=== PATIENT | male | born 1950 | race Caucasian/White ===

== ENCOUNTER 2018-08-15 07:21 | Inpatient (IN) ==
[~2018-08-15 07:21] MED LIST: Aminoglycoside Consult 1 EACH MC ONE
[2018-08-15] MEDS ORDERED: 0.9 % Sodium Chloride 1,000 ML IVC ONE (07:28)
--- NOTE | 2018-08-15 07:29 | Emergency Department Note ---
Disposition Clinical Impression: Hyperkalemia, End stage renal disease Complications, dialysis, catheter, mechanical Qualifiers: Encounter type: initial encounter Qualified Code(s): T82.49XA - Other complication of vascular dialysis catheter, initial encounter Sepsis Qualifiers: Sepsis type: sepsis due to unspecified organism Qualified Code(s): A41.9 - Sepsis, unspecified organism Altered mental status Qualifiers: Altered mental status type: unspecified Qualified Code(s): R41.82 - Altered mental status, unspecified CHF exacerbation Qualifiers: Heart failure type: unspecified Qualified Code(s): I50.9 - Heart failure, unspecified Diabetes Qualifiers: Diabetes mellitus type: type 2 Diabetes mellitus intermediate insulin use: unspecified long term care phlebotomist insulin use status Diabetes mellitus complication status: with unspecified complications Qualified Code(s): E11.8 - Type 2 diabetes mellitus with unspecified complications Disposition: Admitted As Inpatient Condition: Critical Time of Disposition: 09:51 Altered Mental Status HPI - General Chief Complaint: ED Altered Mental Status Time Seen by Provider: 08/15/18 07:24 Source: EMS Mode of arrival: EMS Limitations: altered mental status Nursing Notes Reviewed: Yes Vital Signs Reviewed: Yes - History of Present Illness HPI Narrative: 68-year-old male past medical history of COPD presenting from extended care facility due to concerns of altered mental status and fever. 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 Patient was noted to be hypotensive in route and EMS stated he was having significant bleeding from the femoral wound. Upon presentation pressures being applied there is one soaked ABd pad but no signs of active bleed. There is approximately one half to three-quarter centimeter round wound on the anterior right thigh. Patient appears to have altered mental status and is alert to person only, he is able to answer simple yes or no questions states that he does not have chest pain is short of breath. MD complaint: altered mental status Onset (ago): day(s) Timing confirmed by: other (Information given by EMS.) Consistency of Symptoms: unknown Context: COPD Associated symptoms: Reports: shortness of breath. Denies: chest pain, nausea/vomiting Treatments prior to arrival: IV fluid, oxygen - Related Data Home Medications Medication Instructions Recorded Confirmed Allopurinol [Zyloprim 100 MG] 100 mg PO BID 05/25/18 05/25/18 Aspirin [Lo-Dose Aspirin EC] 81 mg PO DAILY 05/25/18 05/25/18 Furosemide [Lasix] 40 mg PO BID 05/25/18 05/25/18 Simvastatin [Zocor] 40 mg PO HS 05/25/18 05/25/18 Admelog Solostar 2 - 10 units SQ TIDWM MDD sliding 08/15/18 08/15/18 scale Amiodarone [Cordarone] 200 mg PO DAILY 08/15/18 08/15/18 Ascorbate Calcium [Vitamin C] 08/15/18 Ascorbic Acid [Vitamin C] 500 mg PO DAILY 08/15/18 08/15/18 Ergocalciferol (VITAMIN D2) 50,000 unit PO DAILY 08/15/18 08/15/18 [Vitamin D2] Isosorbide DInitrate [Isosorbide 20 mg PO TID 08/15/18 08/15/18 Dinitrate] Lantus Solostar 20 units SQ QAM 08/15/18 08/15/18 Metoprolol Succinate 25 mg PO DAILY 08/15/18 OxyCODONE/APAP 10/325 [Percocet 2 each PO Q6-12H PRN 08/15/18 08/15/18 10/325 MG] Pantoprazole Sodium 40 mg PO DAILY 08/15/18 08/15/18 Triamcinolone 1 appl TP BID PRN 08/15/18 08/15/18 Warfarin [Coumadin] 1.5 mg PO MO 08/15/18 08/15/18 Warfarin [Coumadin] 2 mg PO [id number] 08/15/18 08/15/18 Allergies Allergy/AdvReac Type Severity Reaction Status Date / Time latex AdvReac Rash Verified 05/25/18 20:54 Review of Systems: Medical review of systems able to be obtained due to patient mental status. Patient denies chest pain, abdominal pain nausea or vomiting Patient admits to shortness of breath. All systems ED: reviewed and negative except as stated. Review of Systems: As Per HPI Limitations: ROS unobtainable due to patients medical condition Past Medical History - Past Medical History Medical history: Reports: arthritis, atrial fibrillation, COPD, diabetes, dialysis Surgical history: Reports: herniorrhaphy, knee replacement, orthopedic, other, tonsillectomy, vascular surgery, vasectomy Psychiatric history: Reports: no psych history - Social History Smoking Status: Current every day smoker Smokeless Tobacco Status: No Alcohol use: Reports: none Drug use: Reports: none Physical Exam - General Limitations: no limitations General appearance: alert, in distress - Head Head exam: atraumatic, normocephalic, normal inspection - Eye Eye exam: Present: normal appearance, PERRL, EOMI. Absent: scleral icterus, conjunctival injection - Neck Neck exam: Present: normal inspection, trachea midline - Chest Chest inspection: Present: normal inspection, symmetric chest wall rise - Respiratory Respiratory exam: Present: normal lung sounds bilaterally, wheezes. Absent: respiratory distress, stridor, accessory muscle use, prolonged expiratory phase - Cardiovascular Cardiovascular exam: Present: regular rate, normal rhythm, normal heart sounds, +S1, +S2. Absent: systolic murmur, diastolic murmur, rubs, gallop, clicks, JVD, +S3, +S4 - Abdominal Exam Abdominal exam: Present: soft, Non-Tender, distention, normal bowel sounds. Absent: guarding, rebound, rigidity, organomegaly - Extremities Exam Extremities exam: Present: normal capillary refill, other (Patient is 3+ pitting edema with swelling and erythema noted to bilateral lower extremities. The left lower extremity appears ashen in color. Both lower extremities have less than 3 second capillary refill. They are soaked in urine with a foul odor. Concern for trench foot versus gangrene.) - Skin Skin exam: Present: warm, dry, erythema. Absent: intact, cyanosis, diaphoresis, pallor, mottled Course Course Narrative: ED sepsis workup We will initiate 2 large-bore IVs at this time with 2 L fluid bolus Vancomycin and Zosyn for empiric treatment of sepsis. - Reevaluation(s) Reevaluation #1: Patient's blood pressure has improved with 1 L of fluids Second liter in progress We will hold third liter fluid bolus due to concerns of potential for CHF exacerbation. Vital Signs Temperature 97.9 F 08/15/18 07:22 Pulse Rate 131 08/15/18 07:22 Respiratory Rate 22 08/15/18 07:22 Blood Pressure 104/74 08/15/18 07:22 O2 Sat by Pulse Oximetry 87 08/15/18 07:22 Temperature 97.9 F 08/15/18 07:22 Pulse Rate 131 08/15/18 10:04 Respiratory Rate 21 08/15/18 10:04 Blood Pressure 122/77 08/15/18 10:04 O2 Sat by Pulse Oximetry 100 08/15/18 10:04 Oxygen Delivery Oxygen Delivery Nasal Cannula Altered Mental Status - MDM Narrative Medical decision making narrative: Patient noted to hospitalist medicine service for further evaluation of altered mental status in the setting of end-stage renal disease, hyperkalemia, elevated troponin, and CHF exacerbation. - Lab Data Lab results reviewed: Yes I reviewed the patient's lab results. Result diagrams: 08/15/18 08:13 08/15/18 08:13 Lab Results 08/15/18 08/15/18 08/15/18 Range/Units 07:53 08:13 08:13 WBC 8.6 (4.3-11.1) K/mcL RBC 3.00 L (4.19-5.50) M/mcL Hgb 8.2 L (12.9-16.9) g/dL Hct 26.8 L (37.5-50.1) % MCV 89.3 (83.0-100.0) fL MCH 27.3 L (28.0-33.3) pg MCHC 30.6 L (31.6-35.5) g/dL RDW 19.4 H (11.5-14.5) % Plt Count 213 (140-400) K/mcL MPV 10.1 (9.4-12.4) fL Immature Gran % 0.9 (0-4) % Seg Neutrophils % 88.9 % Lymphocytes % 3.9 % Monocytes % 6.1 % Eosinophils % 0.1 % Basophils % 0.1 % Neutrophils # 7.7 (1.6-8.9) K/mcL Lymphocytes # 0.3 L (0.6-4.6) K/mcL Monocytes # 0.5 (0.0-1.3) K/mcL Eosinophils # 0.0 (0.0-0.6) K/mcL Basophils # 0.0 (0.0-0.2) K/mcL Nucleated RBCs/100 WBC 0.3 H (0) /100 WBC PT 24.4 H (9.4-12.1) Seconds INR 2.2 Sodium (136-145) mEq/L Potassium (3.5-5.1) mEq/L Chloride (98-107) mEq/L Carbon Dioxide (23-29) mEq/L BUN (8-23) mg/dL Creatinine (0.70-1.30) mg/dL Est GFR ( Amer) (> 60) Est GFR (Non-Af Amer) (> 60) BUN/Creatinine Ratio (6-26) Glucose (70-105) mg/dL Calculated Osmolality (280-300) Lactic Acid (0.5-2.2) mmol/L Calcium (8.6-10.3) mg/dL Total Bilirubin (0.3-1.0) mg/dL AST (13-39) Units/L ALT (7-52) Units/L Alkaline Phosphatase (34-104) Units/L Troponin I (< 0.04) ng/mL B-Natriuretic Peptide (Less than 100) pg/mL Serum Total Protein (6.4-8.9) g/dL Albumin (3.5-5.7) g/dL Globulin (2.4-3.5) g/dL Albumin/Globulin Ratio (1.1-2.2) Ur Specimen Adequacy See below A Urine Color [place] A (Yellow) Urine Clarity Turbid A (Clear) Urine pH 5.0 (5.0-8.0) pH Units Ur Specific [place] 1.025 (1.010-1.025) Urine Protein 100 H (Neg-Trace) mg/dL Urine Glucose (UA) Normal (Normal) mg/dL Urine Ketones Trace H (Negative) mg/dL Urine Blood Large H (Negative) Urine Nitrite Negative (Negative) Urine Bilirubin Moderate H (Negative) Urine Urobilinogen Normal (Normal) mg/dL Ur Leukocyte Esterase Moderate H (Negative) Urine Microscopic RBC TNTC H (0-3) per hpf Urine Microscopic WBC 0-3 (0-3) per hpf Ur Squamous Epith Cells Few (None-Few) per lpf Urine Bacteria Few (None-Few) per hpf Blood Type Antibody Screen Crossmatch 08/15/18 08/15/18 08/15/18 Range/Units 08:13 08:13 08:13 WBC (4.3-11.1) K/mcL RBC (4.19-5.50) M/mcL Hgb (12.9-16.9) g/dL Hct (37.5-50.1) % MCV (83.0-100.0) fL MCH (28.0-33.3) pg MCHC (31.6-35.5) g/dL RDW (11.5-14.5) % Plt Count (140-400) K/mcL MPV (9.4-12.4) fL Immature Gran % (0-4) % Seg Neutrophils % % Lymphocytes % % Monocytes % % Eosinophils % % Basophils % % Neutrophils # (1.6-8.9) K/mcL Lymphocytes # (0.6-4.6) K/mcL Monocytes # (0.0-1.3) K/mcL Eosinophils # (0.0-0.6) K/mcL Basophils # (0.0-0.2) K/mcL Nucleated RBCs/100 WBC (0) /100 WBC PT (9.4-12.1) Seconds INR Sodium 133 L (136-145) mEq/L Potassium 5.9 H (3.5-5.1) mEq/L Chloride 95 L (98-107) mEq/L Carbon Dioxide 18 L (23-29) mEq/L BUN 111 H (8-23) mg/dL Creatinine 7.48 H (0.70-1.30) mg/dL Est GFR ( Amer) 9 L (> 60) Est GFR (Non-Af Amer) 7 L (> 60) BUN/Creatinine Ratio 15 (6-26) Glucose 201 H (70-105) mg/dL Calculated Osmolality 317 H (280-300) Lactic Acid 2.6 H (0.5-2.2) mmol/L Calcium 8.7 (8.6-10.3) mg/dL Total Bilirubin 0.7 (0.3-1.0) mg/dL AST 43 H (13-39) Units/L ALT 21 (7-52) Units/L Alkaline Phosphatase 103 (34-104) Units/L Troponin I 0.08 H* (< 0.04) ng/mL B-Natriuretic Peptide (Less than 100) pg/mL Serum Total Protein 7.5 (6.4-8.9) g/dL Albumin 3.4 L (3.5-5.7) g/dL Globulin 4.1 H (2.4-3.5) g/dL Albumin/Globulin Ratio 0.8 L (1.1-2.2) Ur Specimen Adequacy Urine Color (Yellow) Urine Clarity (Clear) Urine pH (5.0-8.0) pH Units Ur Specific [place] (1.010-1.025) Urine Protein (Neg-Trace) mg/dL Urine Glucose (UA) (Normal) mg/dL Urine Ketones (Negative) mg/dL Urine Blood (Negative) Urine Nitrite (Negative) Urine Bilirubin (Negative) Urine Urobilinogen (Normal) mg/dL Ur Leukocyte Esterase (Negative) Urine Microscopic RBC (0-3) per hpf Urine Microscopic WBC (0-3) per hpf Ur Squamous Epith Cells (None-Few) per lpf Urine Bacteria (None-Few) per hpf Blood Type O POSITIVE Antibody Screen NEGATIVE Crossmatch See Detail 08/15/18 Range/Units 08:13 WBC (4.3-11.1) K/mcL RBC (4.19-5.50) M/mcL Hgb (12.9-16.9) g/dL Hct (37.5-50.1) % MCV (83.0-100.0) fL MCH (28.0-33.3) pg MCHC (31.6-35.5) g/dL RDW (11.5-14.5) % Plt Count (140-400) K/mcL MPV (9.4-12.4) fL Immature Gran % (0-4) % Seg Neutrophils % % Lymphocytes % % Monocytes % % Eosinophils % % Basophils % % Neutrophils # (1.6-8.9) K/mcL Lymphocytes # (0.6-4.6) K/mcL Monocytes # (0.0-1.3) K/mcL Eosinophils # (0.0-0.6) K/mcL Basophils # (0.0-0.2) K/mcL Nucleated RBCs/100 WBC (0) /100 WBC PT (9.4-12.1) Seconds INR Sodium (136-145) mEq/L Potassium (3.5-5.1) mEq/L Chloride (98-107) mEq/L Carbon Dioxide (23-29) mEq/L BUN (8-23) mg/dL Creatinine (0.70-1.30) mg/dL Est GFR ( Amer) (> 60) Est GFR (Non-Af Amer) (> 60) BUN/Creatinine Ratio (6-26) Glucose (70-105) mg/dL Calculated Osmolality (280-300) Lactic Acid (0.5-2.2) mmol/L Calcium (8.6-10.3) mg/dL Total Bilirubin (0.3-1.0) mg/dL AST (13-39) Units/L ALT (7-52) Units/L Alkaline Phosphatase (34-104) Units/L Troponin I (< 0.04) ng/mL B-Natriuretic Peptide 735 H (Less than 100) pg/mL Serum Total Protein (6.4-8.9) g/dL Albumin (3.5-5.7) g/dL Globulin (2.4-3.5) g/dL Albumin/Globulin Ratio (1.1-2.2) Ur Specimen Adequacy Urine Color (Yellow) Urine Clarity (Clear) Urine pH (5.0-8.0) pH Units Ur Specific [place] (1.010-1.025) Urine Protein (Neg-Trace) mg/dL Urine Glucose (UA) (Normal) mg/dL Urine Ketones (Negative) mg/dL Urine Blood (Negative) Urine Nitrite (Negative) Urine Bilirubin (Negative) Urine Urobilinogen (Normal) mg/dL Ur Leukocyte Esterase (Negative) Urine Microscopic RBC (0-3) per hpf Urine Microscopic WBC (0-3) per hpf Ur Squamous Epith Cells (None-Few) per lpf Urine Bacteria (None-Few) per hpf Blood Type Antibody Screen Crossmatch - Radiology Data Radiology results reviewed: Yes I reviewed the patient's radiology results. Chest X-Ray 08/15/18 07:29 IMPRESSION: Cardiomegaly with pulmonary vascular prominence. No interstitial or alveolar edema seen. D/ / 08/15/2018 08:21:51 Farzad Russell MD / florin Interpreting Provider: Farzad Russell MD Head CT 08/15/18 09:32 IMPRESSION: No evidence of acute intracranial abnormality. D/ / 08/15/2018 10:01:54 Juan Carlos Cintron MD / florin Interpreting Provider: Juan Carlos Cintron MD - EKG Data EKG attestation: Yes I reviewed and interpreted this EKG. EKG results narrative: Patient EKG shows sinus tachycardia with right bundle branch block and a left anterior fascicular block, tolerated 132 bpm, QRS duration of 185 ms, QT/QTc interval 376/558 ms respectively. There are ST segment elevations noted in lead aVR, which appear to be isolated to that lead, there are ST segment depressions noted in anterior lateral leads the patient is not currently complaining of any chest pain, we will get a troponin at this time for further evaluation. This EKG shows significant changes from prior EKG which was performed on 06/01/2014. TPA Checklist - LKW: 3-4.5 hrs Add. Warnings/Precautions Patient/family understanding: The patient/family members have been counseled and understood the risk, benefit, and alternatives of treatment.
--- NOTE | 2018-08-15 07:32 | Emergency Department Note ---
Disposition Clinical Impression: Complications, dialysis, catheter, mechanical, Sepsis, Altered mental status, CHF exacerbation, Hyperkalemia, End stage renal disease, Diabetes Disposition: Admitted As Inpatient Condition: Critical General Adult HPI - General Chief complaint: ED Altered Mental Status Time Seen by Provider: 08/15/18 07:24 Source: patient, EMS Limitations: no limitations - History of Present Illness Pain Scale: 0 - Related Data Home Medications Medication Instructions Recorded Confirmed Allopurinol [Zyloprim 100 MG] 100 mg PO BID 05/25/18 08/15/18 Aspirin [Lo-Dose Aspirin EC] 81 mg PO DAILY 05/25/18 08/15/18 Furosemide [Lasix] 40 mg PO BID 05/25/18 08/15/18 Simvastatin [Zocor] 10 mg PO HS 05/25/18 08/15/18 Admelog Solostar 2 - 10 units SQ TIDWM MDD sliding 08/15/18 08/15/18 scale Amiodarone [Cordarone] 200 mg PO DAILY 08/15/18 08/15/18 Ascorbate Calcium [Vitamin C] 08/15/18 Ascorbic Acid [Vitamin C] 500 mg PO DAILY 08/15/18 08/15/18 Ergocalciferol (VITAMIN D2) 50,000 unit PO DAILY 08/15/18 08/15/18 [Vitamin D2] Isosorbide DInitrate [Isosorbide 20 mg PO TID 08/15/18 08/15/18 Dinitrate] Lantus Solostar 20 units SQ QAM 08/15/18 08/15/18 Metoprolol Succinate 25 mg PO DAILY 08/15/18 OxyCODONE/APAP 10/325 [Percocet 2 each PO Q6-12H PRN 08/15/18 08/15/18 10/325 MG] Pantoprazole Sodium 40 mg PO DAILY 08/15/18 08/15/18 Triamcinolone 1 appl TP BID PRN 08/15/18 08/15/18 Warfarin [Coumadin] 1.5 mg PO MO 08/15/18 08/15/18 Warfarin [Coumadin] 2 mg PO SUTUWETHFRSA 08/15/18 08/15/18 Allergies Allergy/AdvReac Type Severity Reaction Status Date / Time latex AdvReac Rash Verified 05/25/18 20:54 Past Medical History - Past Medical History Medical history: Reports: arthritis, atrial fibrillation, COPD, diabetes, dialysis Surgical history: Reports: herniorrhaphy, knee replacement, orthopedic, other, tonsillectomy, vascular surgery, vasectomy Psychiatric history: Reports: no psych history - Social History Smoking Status: Current every day smoker Smokeless Tobacco Status: No Alcohol use: Reports: none Drug use: Reports: none Physical Exam - General Limitations: no limitations General appearance: alert, in distress Course Vital Signs Temperature 97.9 F 08/15/18 07:22 Pulse Rate 131 08/15/18 07:22 Respiratory Rate 22 08/15/18 07:22 Blood Pressure 104/74 08/15/18 07:22 O2 Sat by Pulse Oximetry 87 08/15/18 07:22 Temperature 97.6 F 08/15/18 15:17 Pulse Rate 120 08/15/18 15:17 Respiratory Rate 28 08/15/18 15:17 Blood Pressure 95/65 08/15/18 15:17 O2 Sat by Pulse Oximetry 91 08/15/18 15:02 Oxygen Delivery Oxygen Delivery Nasal Cannula Medical Decision Making - Lab Data Result diagrams: 08/15/18 08:13 08/15/18 08:13 Lab Results 08/15/18 08/15/18 08/15/18 Range/Units 07:53 08:13 08:13 WBC 8.6 (4.3-11.1) K/mcL RBC 3.00 L (4.19-5.50) M/mcL Hgb 8.2 L (12.9-16.9) g/dL Hct 26.8 L (37.5-50.1) % MCV 89.3 (83.0-100.0) fL MCH 27.3 L (28.0-33.3) pg MCHC 30.6 L (31.6-35.5) g/dL RDW 19.4 H (11.5-14.5) % Plt Count 213 (140-400) K/mcL MPV 10.1 (9.4-12.4) fL Immature Gran % 0.9 (0-4) % Seg Neutrophils % 88.9 % Lymphocytes % 3.9 % Monocytes % 6.1 % Eosinophils % 0.1 % Basophils % 0.1 % Neutrophils # 7.7 (1.6-8.9) K/mcL Lymphocytes # 0.3 L (0.6-4.6) K/mcL Monocytes # 0.5 (0.0-1.3) K/mcL Eosinophils # 0.0 (0.0-0.6) K/mcL Basophils # 0.0 (0.0-0.2) K/mcL Nucleated RBCs/100 WBC 0.3 H (0) /100 WBC PT 24.4 H (9.4-12.1) Seconds INR 2.2 Sodium (136-145) mEq/L Potassium (3.5-5.1) mEq/L Chloride (98-107) mEq/L Carbon Dioxide (23-29) mEq/L BUN (8-23) mg/dL Creatinine (0.70-1.30) mg/dL Est GFR ( Amer) (> 60) Est GFR (Non-Af Amer) (> 60) BUN/Creatinine Ratio (6-26) Glucose (70-105) mg/dL Calculated Osmolality (280-300) Lactic Acid (0.5-2.2) mmol/L Calcium (8.6-10.3) mg/dL Total Bilirubin (0.3-1.0) mg/dL AST (13-39) Units/L ALT (7-52) Units/L Alkaline Phosphatase (34-104) Units/L Troponin I (< 0.04) ng/mL B-Natriuretic Peptide (Less than 100) pg/mL Serum Total Protein (6.4-8.9) g/dL Albumin (3.5-5.7) g/dL Globulin (2.4-3.5) g/dL Albumin/Globulin Ratio (1.1-2.2) Ur Specimen Adequacy See below A Urine Color [place] A (Yellow) Urine Clarity Turbid A (Clear) Urine pH 5.0 (5.0-8.0) pH Units Ur Specific [place] 1.025 (1.010-1.025) Urine Protein 100 H (Neg-Trace) mg/dL Urine Glucose (UA) Normal (Normal) mg/dL Urine Ketones Trace H (Negative) mg/dL Urine Blood Large H (Negative) Urine Nitrite Negative (Negative) Urine Bilirubin Moderate H (Negative) Urine Urobilinogen Normal (Normal) mg/dL Ur Leukocyte Esterase Moderate H (Negative) Urine Microscopic RBC TNTC H (0-3) per hpf Urine Microscopic WBC 0-3 (0-3) per hpf Ur Squamous Epith Cells Few (None-Few) per lpf Urine Bacteria Few (None-Few) per hpf Blood Type Antibody Screen Crossmatch 08/15/18 08/15/18 08/15/18 Range/Units 08:13 08:13 08:13 WBC (4.3-11.1) K/mcL RBC (4.19-5.50) M/mcL Hgb (12.9-16.9) g/dL Hct (37.5-50.1) % MCV (83.0-100.0) fL MCH (28.0-33.3) pg MCHC (31.6-35.5) g/dL RDW (11.5-14.5) % Plt Count (140-400) K/mcL MPV (9.4-12.4) fL Immature Gran % (0-4) % Seg Neutrophils % % Lymphocytes % % Monocytes % % Eosinophils % % Basophils % % Neutrophils # (1.6-8.9) K/mcL Lymphocytes # (0.6-4.6) K/mcL Monocytes # (0.0-1.3) K/mcL Eosinophils # (0.0-0.6) K/mcL Basophils # (0.0-0.2) K/mcL Nucleated RBCs/100 WBC (0) /100 WBC PT (9.4-12.1) Seconds INR Sodium 133 L (136-145) mEq/L Potassium 5.9 H (3.5-5.1) mEq/L Chloride 95 L (98-107) mEq/L Carbon Dioxide 18 L (23-29) mEq/L BUN 111 H (8-23) mg/dL Creatinine 7.48 H (0.70-1.30) mg/dL Est GFR ( Amer) 9 L (> 60) Est GFR (Non-Af Amer) 7 L (> 60) BUN/Creatinine Ratio 15 (6-26) Glucose 201 H (70-105) mg/dL Calculated Osmolality 317 H (280-300) Lactic Acid 2.6 H (0.5-2.2) mmol/L Calcium 8.7 (8.6-10.3) mg/dL Total Bilirubin 0.7 (0.3-1.0) mg/dL AST 43 H (13-39) Units/L ALT 21 (7-52) Units/L Alkaline Phosphatase 103 (34-104) Units/L Troponin I 0.08 H* (< 0.04) ng/mL B-Natriuretic Peptide (Less than 100) pg/mL Serum Total Protein 7.5 (6.4-8.9) g/dL Albumin 3.4 L (3.5-5.7) g/dL Globulin 4.1 H (2.4-3.5) g/dL Albumin/Globulin Ratio 0.8 L (1.1-2.2) Ur Specimen Adequacy Urine Color (Yellow) Urine Clarity (Clear) Urine pH (5.0-8.0) pH Units Ur Specific [place] (1.010-1.025) Urine Protein (Neg-Trace) mg/dL Urine Glucose (UA) (Normal) mg/dL Urine Ketones (Negative) mg/dL Urine Blood (Negative) Urine Nitrite (Negative) Urine Bilirubin (Negative) Urine Urobilinogen (Normal) mg/dL Ur Leukocyte Esterase (Negative) Urine Microscopic RBC (0-3) per hpf Urine Microscopic WBC (0-3) per hpf Ur Squamous Epith Cells (None-Few) per lpf Urine Bacteria (None-Few) per hpf Blood Type O POSITIVE Antibody Screen NEGATIVE Crossmatch See Detail 08/15/18 Range/Units 08:13 WBC (4.3-11.1) K/mcL RBC (4.19-5.50) M/mcL Hgb (12.9-16.9) g/dL Hct (37.5-50.1) % MCV (83.0-100.0) fL MCH (28.0-33.3) pg MCHC (31.6-35.5) g/dL RDW (11.5-14.5) % Plt Count (140-400) K/mcL MPV (9.4-12.4) fL Immature Gran % (0-4) % Seg Neutrophils % % Lymphocytes % % Monocytes % % Eosinophils % % Basophils % % Neutrophils # (1.6-8.9) K/mcL Lymphocytes # (0.6-4.6) K/mcL Monocytes # (0.0-1.3) K/mcL Eosinophils # (0.0-0.6) K/mcL Basophils # (0.0-0.2) K/mcL Nucleated RBCs/100 WBC (0) /100 WBC PT (9.4-12.1) Seconds INR Sodium (136-145) mEq/L Potassium (3.5-5.1) mEq/L Chloride (98-107) mEq/L Carbon Dioxide (23-29) mEq/L BUN (8-23) mg/dL Creatinine (0.70-1.30) mg/dL Est GFR ( Amer) (> 60) Est GFR (Non-Af Amer) (> 60) BUN/Creatinine Ratio (6-26) Glucose (70-105) mg/dL Calculated Osmolality (280-300) Lactic Acid (0.5-2.2) mmol/L Calcium (8.6-10.3) mg/dL Total Bilirubin (0.3-1.0) mg/dL AST (13-39) Units/L ALT (7-52) Units/L Alkaline Phosphatase (34-104) Units/L Troponin I (< 0.04) ng/mL B-Natriuretic Peptide 735 H (Less than 100) pg/mL Serum Total Protein (6.4-8.9) g/dL Albumin (3.5-5.7) g/dL Globulin (2.4-3.5) g/dL Albumin/Globulin Ratio (1.1-2.2) Ur Specimen Adequacy Urine Color (Yellow) Urine Clarity (Clear) Urine pH (5.0-8.0) pH Units Ur Specific [place] (1.010-1.025) Urine Protein (Neg-Trace) mg/dL Urine Glucose (UA) (Normal) mg/dL Urine Ketones (Negative) mg/dL Urine Blood (Negative) Urine Nitrite (Negative) Urine Bilirubin (Negative) Urine Urobilinogen (Normal) mg/dL Ur Leukocyte Esterase (Negative) Urine Microscopic RBC (0-3) per hpf Urine Microscopic WBC (0-3) per hpf Ur Squamous Epith Cells (None-Few) per lpf Urine Bacteria (None-Few) per hpf Blood Type Antibody Screen Crossmatch Critical Care Time Critical Care Time: Yes Total Critical Care Time: 60 Attestation: The high probability of a clinically significant, sudden or life threatening deterioration of the [] system(s) required my full and direct attention, intervention and personal management. The aggregate critical care time was [] minutes. This time is in addition to time spent performing reported procedures but includes the following: [] Data Review and interpretation [] Patient assessment and monitoring of vital signs [] Documentation [] Medication orders and management Attestation Statement - Attestation Attestation: I reviewed the residents documentation and agree with the residents assessment and plan of care. I have personally had face to face time with the patient. (Brief History, Brief Exam, and MDM) I personally supervised and was present for the garcia/critical portions of the following procedures completed by the resident: (add procedures performed here). [id number] time provided Patient arrives by EMS from [facility] with altered mentation. He was febrile prehospital and is hypotensive. Concern for sepsis. Additional concern is that the patient had incidental accidental traumatic removal of his right femoral permacath. Bleeding is controlled upon arrival. I did discuss this case with the on-call vascular surgeon Dr. Rosado at 07:30 08:13: The patient was initially hypotensive and tachycardic. He was afebrile but it was reported that he had a fever prehospital. His vital signs could be due to sepsis but also could be due to acute blood loss. We did initiate the sepsis pathway and the patient was given 2 L of fluid with improvement of his blood pressure. We are withholding further fluid resuscitation at this time given the patient's history of ESRD and suspected CHF.
[2018-08-15] MEDS ORDERED: Piperacillin/Tazobactam 3.375 GM in 0.9 % Sodium Chloride Mini Bag 100 ML IVPB ONE (07:36)
[2018-08-15 08:09] LABS: Bilirubin,Urine Moderate (Negative); Blood,Urine Large (Negative); Clarity,Urine Turbid (Clear); Glucose,Urine (UA) Normal (Normal); Ketones,Urine Trace mg/dL (Negative); Leukocyte Esterase,Urine Moderate (Negative); Nitrite,Urine Negative (Negative); Protein,Urine 100 mg/dL (Neg-Trace); Specific Gravity,Urine 1.025 (1.010-1.025); Urobilinogen,Urine Normal (Normal)
[2018-08-15 08:10] LABS: Color,Urine Orange (Yellow)
[2018-08-15 08:11] LABS: RBC,Urine TNTC per hpf (0-3)
[2018-08-15 08:12] LABS: Bacteria,Urine Few per hpf (None-Few); Squamous Epithelial Cell,Urine Few per lpf (None-Few); WBC,Urine 0-3 per hpf (0-3)
[2018-08-15 08:27] LABS: Basophils % 0.1 %; Eosinophils % 0.1 %; Hematocrit 26.8 % (37.5-50.1); Hemoglobin 8.2 g/dL (12.9-16.9); Immature Granulocytes % 0.9 % (0-4); Lymphocytes # 0.3 K/mcL (0.6-4.6); Lymphocytes % 3.9 %; Mean Corpuscular HGB Conc 30.6 g/dL (31.6-35.5); Mean Corpuscular Hemoglobin 27.3 pg (28.0-33.3); Mean Corpuscular Volume 89.3 fL (83.0-100.0); Mean Platelet Volume 10.1 fL (9.4-12.4); Monocytes # 0.5 K/mcL (0.0-1.3); Monocytes % 6.1 %; Neutrophils # 7.7 K/mcL (1.6-8.9); Nucleated Red Blood Cells 0.3 /100 WBC (0); Platelet Count 213 K/mcL (140-400); Red Cell Distribution Width 19.4 % (11.5-14.5); Segmented Neutrophils % 88.9 %
[2018-08-15 08:40] LABS: INR 2.2; Prothrombin Time 24.4 Seconds (9.4-12.1)
[2018-08-15] MEDS ORDERED: *HR* Amiodarone 200 MG TABLET PO SCH (09:00)
[2018-08-15 09:23] LABS: Albumin 3.4 g/dL (3.5-5.7); Albumin/Globulin Ratio 0.8 (1.1-2.2); Bilirubin,Total 0.7 mg/dL (0.3-1.0); Calcium 8.7 mg/dL (8.6-10.3); Globulin 4.1 g/dL (2.4-3.5); Potassium 5.9 mEq/L (3.5-5.1); Total Protein 7.5 g/dL (6.4-8.9)
[2018-08-15 09:31] LABS: Troponin I 0.08 ng/mL (< 0.04)
[2018-08-15] MEDS ORDERED: *HR* Dextrose 50 % in Water (Syg) 50 ML SYRINGE IVP ONE (09:38)
[2018-08-15] MEDS ORDERED: Ipratropium/Albuterol Neb 3 ML IH ONE (09:39)
[2018-08-15] MEDS ORDERED: Insulin Human Regular 10 UNIT in 0.9 % Sodium Chloride 10 ML IV ONE (09:39)
[2018-08-15] MEDS ORDERED: Naloxone 0.4 MG/ML INJ IVP PRN (09:48)
[2018-08-15] MEDS ORDERED: Sodium Bicarbonate 50 MEQ/50 ML VIAL IVP ONE (09:56)
[2018-08-15] MEDS ORDERED: Vancomycin 1 EACH in 0.9 % Sodium Chloride 250 ML IVPB SCH (10:00)
[2018-08-15] MEDS ORDERED: *HR* FentaNYL (PF) 100 MCG/2 ML VIAL IVP ONE (10:24)
[2018-08-15] MEDS ORDERED: 0.9 % Sodium Chloride 250 ML ONE ×2 (11:04→19:59)
[2018-08-15] MEDS ORDERED: *HR* HYDROmorphone (PF) 1 MG/ML SYRINGE IVP ONE (11:50)
[2018-08-15] MEDS ORDERED: *HR* FentaNYL (PF) 100 MCG/2 ML VIAL IVP PRN (12:21)
[2018-08-15] MEDS ORDERED: *HR* Dextrose 50 % in Water (Syg) 50 ML SYRINGE IVP PRN (12:22)
[2018-08-15] MEDS ORDERED: D5% in Water 1,000 ML IVC PRN (12:22)
[2018-08-15] MEDS ORDERED: Dextrose Gel 15 GM/37.5 ML TUBE PO PRN ×2 (12:22)
--- NOTE | 2018-08-15 12:38 | Internal Med History&Physical ---
Date of Encounter: 08/15/18 Time of Encounter: 12:00 Internal Medicine - H&P: HPI Chief complaint: Altered mental status, fevers and cough History of present illness: Mr. Montanez is a 68 year old male with pmh of ESRD recently started on dialysis in june, atrial fibrillation, COPD, diabetes presenting with complaints of coughing for a few days, and confusion and hallucination since last night. Patient is a intermediate resident and per intermediate staff he has been getting increasingly lethargic in the last couple of days. Family provided history at the bedside as patient is lethargic and unable to answer questions. They note he has been having some coughing and been getting progressivey more lethargic. ALso note that he has been having worsening abdominal swelling and weeping of the lower extremities. He has bilateral warmth and redness in his bilateral lower extremities that has been going on for a while now. They reported increased confusion last night as well as seeing objects that weren't there previously. halfway also reports a temperature of 102 and that's why they sent him to the ER. There's also a report that he had a tunneled catheter i n the right groin that got dislodged this am when they were trying to move him , and he had a lot of bleeding at the site. In the ER, his hemoglobin was 8.2 and he is being transfused 2 units of blood. Vascular surgery has also been consulted for tunneled catheter replacement. He is being admitted for further management Past Med Surg Social Fam HX - Past Medical History Medical history: arthritis, atrial fibrillation, COPD, diabetes, dialysis, GERD, hyperlipidemia, hypertension, other Additional medical history: gout, edema Psychiatric history: no psych history - Past Surgical History Surgical History: herniorrhaphy, knee replacement, orthopedic, other, tonsillectomy, vascular surgery, vasectomy Additional surgical history: pacer, valve replacement, bilateral knee replacements - Social History Smoking Status: Current every day smoker Smokeless Tobacco Status: No Alcohol use: none Drug use: none Internal Medicine - H&P: Meds Allopurinol [Zyloprim 100 MG] 100 mg PO BID 05/25/18 [History] Aspirin [Lo-Dose Aspirin EC] 81 mg PO DAILY 05/25/18 [History] Furosemide [Lasix] 40 mg PO BID 05/25/18 [History] Simvastatin [Zocor] 10 mg PO HS 05/25/18 [History] Admelog Solostar 2 - 10 units SQ TIDWM MDD sliding scale 08/15/18 [History] Amiodarone [Cordarone] 200 mg PO DAILY 08/15/18 [History] Ascorbate Calcium [Vitamin C] 08/15/18 [History] Ascorbic Acid [Vitamin C] 500 mg PO DAILY 08/15/18 [History] Ergocalciferol (VITAMIN D2) [Vitamin D2] 50,000 unit PO DAILY 08/15/18 [History] Isosorbide DInitrate [Isosorbide Dinitrate] 20 mg PO TID 08/15/18 [History] Lantus Solostar 20 units SQ QAM 08/15/18 [History] Metoprolol Succinate 25 mg PO DAILY 08/15/18 [History] OxyCODONE/APAP 10/325 [Percocet 10/325 MG] 2 each PO Q6-12H PRN 08/15/18 [History] Pantoprazole Sodium 40 mg PO DAILY 08/15/18 [History] Triamcinolone 1 appl TP BID PRN 08/15/18 [History] Warfarin [Coumadin] 1.5 mg PO MO 08/15/18 [History] Warfarin [Coumadin] 2 mg PO SUTUWETHFRSA 08/15/18 [History] Allergy/AdvReac Type Severity Reaction Status Date / Time latex AdvReac Rash Verified 05/25/18 20:54 All Systems PM: A 10-system review of systems was performed and is negative for pertinent findings except as documented above in the HPI. - Constitutional Constitutional: no chills, no fever(s), no night sweats - EENT Eyes: no change in vision, no discharge, no pain, no photophobia Ears: no ear discharge, no ear pain, no tinnitus Nose, mouth and throat: no dysphagia, no nasal discharge, no neck pain, no sore throat - Cardiovascular Cardiovascular ROS IM: no chest pain, no diaphoresis, no dyspnea, no lightheadedness, no palpitations, no syncope - Respiratory Respiratory: no cough, no dyspnea, no wheezing, no excessive phlegm production - Gastrointestinal Gastrointestinal: no abdominal pain, no diarrhea, no hematemesis, no hematochezia, no melena, no nausea, no vomiting - Musculoskeletal Musculoskeletal ROS IM: no numbness, no tingling - Integumentary Integumentary IM: no rash, no unusual bruising - Neurological Neurological ROS: no confusion, no convulsions, no focal weakness, no numbness, no tingling, no tremor(s) - Hematologic/Lymphatic Hematologic/Lymphatic: no easy bruising - Constitutional Vitals: Temp Pulse Resp BP Pulse Ox 97.7 F 128 24 107/69 95 08/15/18 11:31 08/15/18 11:31 08/15/18 11:59 08/15/18 11:59 08/15/18 11:31 General appearance: Present: A&O X 2 Exam: Morbidoly obese elderly male Weeping cellulilitis in lower extremities bilaterally - Head Head exam: Present: atraumatic, normocephalic - Eye Eye exam: Present: PERRL, conjuntiva pink, sclera anicteric Pupils: Present: PERRL - Neck Neck exam general surgery: Present: supple, trachea midline. Absent: lymphadenopathy - Respiratory Respiratory exam: Present: CTAB. Absent: accessory muscle use, rales, rhonchi, wheezes - Cardiovascular Cardiovascular exam: Present: RRR, +S1, +S2. Absent: diastolic murmur, gallop, rubs, systolic murmur - GI/Abdominal GI/Abdominal exam: Present: normal bowel sounds, soft, no peritoneal signs. Absent: distended, tenderness Additional comments: Obese, distended abdomen - Extremities Exam Extremities exam: Present: joint swelling, warm, radial pulses palpable and symmetrical. Absent: calf tenderness, cyanotic, pedal edema - Neurological Exam Neurological exam: Present: CN II-XII intact, oriented X3, no focal deficits. Absent: pronater drift, facial droop, speech deficit - Skin Skin exam: Present: dry, intact Internal Med - H&P Results - Labs CBC & Chem 7: 08/15/18 08:13 08/15/18 08:13 Labs: Short CBC 08/15/18 Range/Units 08:13 WBC 8.6 (4.3-11.1) K/mcL Hgb 8.2 L (12.9-16.9) g/dL Hct 26.8 L (37.5-50.1) % Plt Count 213 (140-400) K/mcL Neutrophils # 7.7 (1.6-8.9) K/mcL BMP 08/15/18 08:13 Sodium 133 L Potassium 5.9 H Chloride 95 L Carbon Dioxide 18 L BUN 111 H Creatinine 7.48 H Glucose 201 H Calcium 8.7 Cardiac Enzymes 08/15/18 Range/Units 08:13 Troponin I 0.08 H* (< 0.04) ng/mL Liver Function 08/15/18 Range/Units 08:13 Total Bilirubin 0.7 (0.3-1.0) mg/dL AST 43 H (13-39) Units/L ALT 21 (7-52) Units/L Alkaline Phosphatase 103 (34-104) Units/L Albumin 3.4 L (3.5-5.7) g/dL Urine 08/15/18 Range/Units 07:53 Urine Color [place] A (Yellow) Urine Clarity Turbid A (Clear) Urine pH 5.0 (5.0-8.0) pH Units Ur Specific [place] 1.025 (1.010-1.025) Urine Protein 100 H (Neg-Trace) mg/dL Urine Glucose (UA) Normal (Normal) mg/dL - Impressions ITS Impressions Chest X-Ray 08/15/18 07:29 IMPRESSION: Cardiomegaly with pulmonary vascular prominence. No interstitial or alveolar edema seen. D/ / 08/15/2018 08:21:51 Farzad Russell MD / florin Interpreting Provider: Farzad Russell MD Head CT 08/15/18 09:32 IMPRESSION: No evidence of acute intracranial abnormality. D/ / 08/15/2018 10:01:54 Juan Carlos Cintron MD / florin Interpreting Provider: Juan Carlos Cintron MD - Assessment and Plan (1) Acute metabolic encephalopathy Current Visit: Yes Status: Acute Assessment and plan: Pt comes in with acute metabolic encephalopathy of 1 day with fevers, cough possibly secondary to sepsis from lower extremity cellulitis vs pneumonia Obtain blood cultures. Start on broad spectrum antibiotics with vanc and zosyn Podiatry consulted for lower extremity cellulitis (2) CHF exacerbation Current Visit: Yes Status: Acute Assessment and plan: No previous echo. Patient has lower extremity sewlling and abdominal distention likely 2/2 to acute CHF Start on IV lasix BID. Obtain 2D echo. Per family patient still produces urine Qualifiers: Heart failure type: unspecified Qualified Code(s): I50.9 - Heart failure, unspecified (3) Diabetes Current Visit: Yes Status: Acute Assessment and plan: On insulin. Moniotr fingersticks Qualifiers: Diabetes mellitus type: type 2 Diabetes mellitus mcc insulin use: unspecified mcc insulin use status Diabetes mellitus complication status: with unspecified complications Qualified Code(s): E11.8 - Type 2 diabetes mellitus with unspecified complications (4) Sepsis Current Visit: Yes Status: Acute Assessment and plan: See #1. Has cough and fever of 101 at intermediate with weeping lower extremity cellulitis On vanc and zosyn. Obtain cultures. CXR shows no clear infiltrate Qualifiers: Sepsis type: sepsis due to unspecified organism Qualified Code(s): A41.9 - Sepsis, unspecified organism (5) Atrial fibrillation Current Visit: Yes Status: Acute Assessment and plan: continue amiodarone and metoprolol Coumadin on hold for possible tunneled catheter placement which got removed at the intermediate by accident Qualifiers: Qualified Code(s): I48.91 - Unspecified atrial fibrillation (6) Complications, dialysis, catheter, mechanical Current Visit: Yes Status: Acute Assessment and plan: Plan for tunneled catheter replacement. VAscular surgery consulted Qualifiers: Encounter type: initial encounter Qualified Code(s): T82.49XA - Other complication of vascular dialysis catheter, initial encounter (7) End stage renal disease Current Visit: Yes Status: Acute Assessment and plan: Renal consulted. resume dialysis as tolerated (8) Hyperkalemia Current Visit: Yes Status: Acute Assessment and plan: Received hyperkalemia cocktail with insulin, bicarb and kayexalate Will repeat potassium (9) Anemia due to acute blood loss Current Visit: Yes Status: Acute Assessment and plan: Pt reportedly had profuse bleeding with dislodged dialysis catheter No active bleeding noted at this time. Hemoglobin was noted to be 8 on arrival which is lower than his baseline Transfused 2 units prbc in the ER (10) Bilateral cellulitis of lower leg Current Visit: Yes Status: Acute Assessment and plan: See #1. On antibitoics. Obtain BHASKAR to r/o PAD (11) Elevated troponin Current Visit: Yes Status: Acute Assessment and plan: Likely demand ischemia. No chest pain reported. F/u 2d echo (12) DVT prophylaxis Current Visit: Yes Status: Acute Assessment and plan: Hold warfarin - Time Spent With Patient Total time spent is greater than 50% in coordination of care (as documented) at patient's floor/unit and/or counseling patient:
[2018-08-15] MEDS: *HR* Amiodarone 200 MG TABLET PO SCH (13:44)
[2018-08-15] MEDS: Furosemide 40 MG/4 ML VIAL IVP SCH ×2 (13:45→17:59)
[2018-08-15] MEDS ORDERED: 0.9 % Sodium Chloride 500 ML ONE ×2 (14:41→21:19)
[2018-08-15] MEDS: Levalbuterol Neb 0.63 MG/3 ML IH SCH ×2 (15:24→22:13)
[2018-08-15] MEDS ORDERED: Levalbuterol Neb 1.25 MG/3 ML IH SCH (16:00)
[2018-08-15] MEDS ORDERED: *HR* Metoprolol 5 MG/5 ML VIAL IVP ONE (17:42)
[2018-08-15] MEDS: Insulin LISPRO 300 UNITS/3 ML VIAL SQ SCH (17:59)
[2018-08-15] MEDS: Piperacillin/Tazobactam 3.375 GM in 0.9 % Sodium Chloride Mini Bag 100 ML IVPB SCH (18:01)
[2018-08-15] MEDS ORDERED: Lactulose Oral Soln 20 GM/30 ML UDC PO ONE (18:17)
[2018-08-15 18:52] LABS: VBG HCO3 15 mEq/L (21-27); VBG PCO2 29 mmHg (41-51); VBG PH 7.33 pH Units (7.32-7.42); VBG PO2 48 mmHg (25-50)
[2018-08-15 19:04] LABS: ABG Base Excess -9 mEq/L (-2 to 3); ABG HCO3 16 mEq/L (21-27); ABG Oxygen Saturation 94 % (95-98); ABG PCO2 29 mmHg (35-45); ABG PH 7.34 pH Units (7.32-7.45); ABG PO2 74 mmHg (85-104); ABG TCO2 16 mEq/L (20-26)
[2018-08-15] MEDS ORDERED: Calcium Gluconate 2,000 MG in 0.9 % Sodium Chloride 100 ML IVPB ONE (19:26)
[2018-08-15] MEDS ORDERED: Insulin Human Regular 5 UNIT, Sodium Bicarbonate 50 MEQ in D10% in Water 500 ML IVC ONE (19:26)
[2018-08-15] MEDS ORDERED: Dexmedetomidine HCl 400 MCG/100 ML MLS IVC ONE (19:52)
[2018-08-15] MEDS ORDERED: Furosemide 100 MG in 0.9 % Sodium Chloride 50 ML IVPB ONE (19:54)
[2018-08-15] MEDS: Dexmedetomidine HCl 400 MCG/100 ML MLS IVC SCH (19:57)
[2018-08-15 20:38] LABS: Estimated Average Glucose 169 mg/dl; Hemoglobin A1C 7.5 %
[2018-08-15] MEDS ORDERED: Insulin DETEMIR 100 UNIT/ML X5UNITS SQ SCH (21:00)
[2018-08-15] MEDS ORDERED: *HR* LORazepam 2 MG/ML VIAL IVP PRN (21:59)
[2018-08-15] MEDS ORDERED: Atropine Sulfate 1% 40 DROP/2 ML BOTTLE SL PRN (21:59)
--- NOTE | 2018-08-15 22:26 | Event Note ---
<QuiqueKaye N - Last Filed: 08/15/18 22:12> Date of Encounter: 08/15/18 Time of Encounter: 22:12 Nursing staff requested bedside evaluation of this patient due to concerns for his respiratory status. On exam, patient did appear to be grossly fluid overloaded, with coarse bilateral rales. At that time, patient was on BiPAP, and appeared to be very agitated. I discussed with the family that patient would benefit from transfer to the ICU due to the severity of his illness, and that he may require intubation, as his oxygen saturation was noted to be in the 80s despite BiPAP. Patient's eldest daughter, his power of music specialist, was present the bedside. She voiced that the patient had expressed in the past that he did not want to be on long-term life support. I explained to her that even if he was intubated, if she, as the POA, requested that he be extubated, that was something that we can proceed with. Patient was also noted to have elevated potassium of 6.6, and recommendation was made for emergent dialysis. Patient was transferred to the ICU, with his to plans for intubation and placement of temporary dialysis line. On-call surgeon was consulted for placement of femoral dialysis line. There were concerns regarding placement of this line, particularly in light of the patient's elevated INR of 2.2. Review of prior medical results revealed the patient does have a mechanical heart valve. Discussion was made for potential rapid reversal of patient's Coumadin; however, we were unable to determine if this heart valve was mechanical or biologic despite extensive review of outpatient medical records. Patient's daughters were brought to the bedside, and difficulties regarding his current plan of care were discussed, including the likelihood of bleeding with placement of the line, further worsening hypotension, and likely need for intubation. It was also discussed that with the extensive nature of his illness and multiple comorbidities, there was the possibility that he would not survive even with extensive intervention. After further discussion, patient's POA decided that he would not want these extraordinary measures, and requested that his CODE STATUS be changed to [id number] DNI. Family requested that the patient be kept sedated and on BiPAP at this time, with consult to palliative care tomorrow. <Sheri Lancaster A - Last Filed: 08/16/18 06:38> Date of Encounter: 08/16/18 Patient transferred from [facility] to ICU in critical condition with a potassium of 6.6, volume overload and septic with hemodynamic instability. Patient was placed on BiPAP prior to transfer but was very agitated and requiring constant monitoring to prevent him from removing his BiPAP. As a result he was placed on Precedex for sedation. Shortly after arrival to ICU patient was hypotensive with a systolic blood pressure in the 80s and tachycardic in the 120s. Dr. Lorenzo with surgery was contacted for aid with placement of a temporary dialysis catheter given that patient's femoral HD catheter was dislodged prior to arrival to the hospital. However patient's INR was 2.2 as he was on anticoagulation for mechanical heart valve. We attempted to determine if the valve was bioprosthetic versus mechanical as we considered reversing the patient's INR. However, we were unable to make that determination and held off administering FFP due to concern that the patient may have a mechanical valve and risk of stroke if INR reversed. Given our predicament, myself, Dr. Lorenzo, Dr. Ortez agreed that we could not reverse the patient's INR due to increased risk of stroke if patient did in fact have a mechanical valve. Furthermore, patient would likely require intubation prior to placement of catheter which would only further exacerbate his hypotension. At this time discussion with the patient's daughters one of whom was his power of music specialist took place and our concerns were conveyed to the family. Risks of the procedure given his critical state and the likelihood that he may not survive was discussed. Family understood the risk of bleeding and further drop in his blood pressure and that he may not survive the procedure and did not want him to suffer any further. They ultimately came to the decision to transition the patient to DNR CC DNI, keep patient on BiPAP and sedation for the time being, discontinue attempt to dialyze and consult with palliative in the morning if patient survives. Patient CODE STATUS changed to DNR CC DNI. Ativan and morphine as needed ordered for comfort care measures.
[2018-08-16] MEDS: Piperacillin/Tazobactam 3.375 GM in 0.9 % Sodium Chloride Mini Bag 100 ML IVPB SCH ×4 (00:25→21:29)
[2018-08-16] MEDS: Dexmedetomidine HCl 400 MCG/100 ML MLS IVC SCH ×2 (00:26→10:16)
[2018-08-16] MEDS: Levalbuterol Neb 0.63 MG/3 ML IH SCH ×4 (03:33→21:19)
[2018-08-16 03:42] LABS: Basophils % 0.1 %; Hematocrit 27.8 % (37.5-50.1); Hemoglobin 8.7 g/dL (12.9-16.9); Immature Granulocytes % 0.9 % (0-4); Lymphocytes # 0.5 K/mcL (0.6-4.6); Lymphocytes % 6.1 %; Mean Corpuscular HGB Conc 31.3 g/dL (31.6-35.5); Mean Corpuscular Hemoglobin 27.5 pg (28.0-33.3); Mean Platelet Volume 10.5 fL (9.4-12.4); Monocytes # 0.4 K/mcL (0.0-1.3); Monocytes % 5.8 %; Neutrophils # 6.6 K/mcL (1.6-8.9); Nucleated Red Blood Cells 1.3 /100 WBC (0); Platelet Count 175 K/mcL (140-400); Red Blood Count 3.16 M/mcL (4.19-5.50); Red Cell Distribution Width 18.7 % (11.5-14.5); Segmented Neutrophils % 87.1 %
[2018-08-16 03:59] LABS: Calcium 8.2 mg/dL (8.6-10.3); Magnesium 1.7 mg/dL (1.6-2.6); Phosphorous 8.2 mg/dL (2.7-4.5); Potassium 6.5 mEq/L (3.5-5.1)
[2018-08-16 04:10] LABS: Hepatitis B Surface Antibody < 3.10 mIU/mL
[2018-08-16 04:21] LABS: Hepatitis B Surface Antigen Nonreactive (Nonreactive)
[2018-08-16] MEDS: *HR* Morphine 2 MG/ML SYRINGE IVP PRN ×4 (05:50→14:48)
[2018-08-16] MEDS ORDERED: Perflutren Lipid Microsphere 1.3 ML in 0.9 % Sodium Chloride 8.7 ML IVP ONE (07:17)
[2018-08-16] MEDS ORDERED: Cholecalciferol (D-3) 1,000 UNIT TABLET PO SCH (09:00)
[2018-08-16] MEDS ORDERED: Aspirin Enteric Coated 81 MG Tablet PO SCH (09:00)
[2018-08-16] MEDS: Furosemide 40 MG/4 ML VIAL IVP SCH (09:22)
[2018-08-16] MEDS: Insulin LISPRO 300 UNITS/3 ML VIAL SQ SCH ×2 (09:23→12:08)
[2018-08-16] MEDS: *HR* Amiodarone 200 MG TABLET PO SCH (09:23)
--- NOTE | 2018-08-16 11:25 | Palliative - Consult Note ---
<Jeff Matamorosyessica Greco - Last Filed: 08/16/18 14:36> Date of Encounter: 08/16/18 Time of Encounter: 11:24 - Assessment and Plan (1) Goals of care, counseling/discussion Current Visit: Yes Status: Acute Assessment and plan: Met with pt's family including his eldest daughter, Michelle, who with the healthcare POA, as well as his youngest daughter and the 2 daughters' husbands. Discussed current clinical situation with CHF exacerbation, ESRD, and lower extremity cellulitis. Overall poor prognosis was discussed. Family is understanding of this prognosis, they report the patient would not wish to wear the BiPAP mask. Also confirmed they do not wish for another dialysis catheter placement at this time with home anticoagulation for afib and valve replacement due to the risk of bleeding. Agreed for change to DNR-CC status with request to continue IV antibiotics at this time. DNRCC order placed and state formed signed . Patient to have BiPAP mask removed shortly with transition to supplemental O2 via nasal cannula. Pt will continue to be monitored by hospitalist team today with plans to transition to Hospice tomorrow. (2) Encounter for palliative care Current Visit: Yes Status: Acute (3) End stage renal disease Current Visit: Yes Status: Acute Assessment and plan: Family reports patient started HD last month, and femoral catheter became dislo dged while moving patient. As above family is electing for no further HD line placement or HD at this time. (4) Bilateral cellulitis of lower leg Current Visit: Yes Status: Acute Assessment and plan: Presented with erythematous, warm, and edema of bilateral lower extremities. Was reported to be febrile prior to admission. Met sepsis criteria with elevated HR, and tachypnea. Was started on IV Vanc and Zosyn empirically. Family wishes to continue treatment with abx at this time. Management per bridger squires. (5) CHF exacerbation Current Visit: Yes Status: Acute Assessment and plan: Presented with lower extremity edema, increasing abdominal distention, and shortness of breath. Echo from 08/16/18 showed LVEF 35-40% with severe LV diastolic dsyfunction, and mild RV hypokinesis. Management per primary Qualifiers: Heart failure type: unspecified Qualified Code(s): I50.9 - Heart failure, unspecified (6) Hyperkalemia Current Visit: Yes Status: Acute Assessment and plan: likely 2/2 ESRD without HD 5.9 on admission, subsequently elevated at 6.6 yesterday evening, and 6.5 this AM (7) Sepsis Current Visit: Yes Status: Acute Assessment and plan: Presented with tachypnea, tachycardia, and reported pre-hospital fevers. Possibly due to bilateral cellulitis vs pneumonia. Was given 2L IV fluid in the ED. Was started on empiric Vanc and Zosyn. Plan as above in bilateral lower extremity cellulitis. Qualifiers: Sepsis type: sepsis due to unspecified organism Qualified Code(s): A41.9 - Sepsis, unspecified organism Palliative-CN HPI - Data of Consult Patient: new to practice Consult date: 08/16/18 Requesting Physician: Corrine Long Primary Care Provider: Sean Maciel MD - Consult Narrative History of present illness: Mr. Montanez is a 68 year old male who presented on 08/15/18 with reported c omplaints of cough and altered mental status. Family at bedside reports patient has been increasingly lethargic over the past 2-3 days, with significant confusion. They report he was unable to recognize any family members as he usually does. Family also reports increased cough, increased abdominal d istention, and warmth and erythema of the bilateral lower extremities. Family also reported patient did have a tunnel dialysis catheter previously in his groin, but this became dislodged while moving the patient. He was started on HD last month with ESRD. Hemoglobin in the ED was found to be 8.2 and patient was subsequently transfused 2 units pRBCs. Patient was admitted for encephalopathy with CHF exacerbation and sepsis due to LE cellulitis vs pneumonia. Overnight the patient's respiratory status continued to decline and he was agitated while on BiPAP. Pt was subsequently transferred to ICU with plans for possible extubation. Surgery consult for placement of dialysis line was concerning for elevated INR of 2.2. At the time the difficulties regarding the current plan of care were discussed, and family elected to defer any further attempts for dialysis catheter placement and hemodialysis. Pt's eldest daughter, the healthcare POA, reported the patient would not want any extraordinary m easures and code status was changed to [id number]-CCA-DNI. Pt appears comfortable in bed this morning with BiPAP in place. Grimaces with painful stimuli, but remains non-verbal and will not open eyes. CC: Supo A Folaranmi - Time Spent with Patient Time: Total time spent is greater than 50% in coordination of care (as documented) at patient's floor/unit and/or counseling patient: Past Med Surg Social Fam HX - Past Medical History Medical history: arthritis, atrial fibrillation, COPD, diabetes, dialysis, GERD, hyperlipidemia, hypertension, other Additional medical history: gout, edema Psychiatric history: no psych history - Past Surgical History Surgical History: herniorrhaphy, knee replacement, orthopedic, other, tonsillectomy, vascular surgery, vasectomy Additional surgical history: pacer, valve replacement, bilateral knee replacements - Social History Smoking Status: Current every day smoker Smokeless Tobacco Status: No Alcohol use: none Drug use: none Medications and Allergies Allopurinol [Zyloprim 100 MG] 100 mg PO BID 05/25/18 [History] Aspirin [Lo-Dose Aspirin EC] 81 mg PO DAILY 05/25/18 [History] Furosemide [Lasix] 40 mg PO BID 05/25/18 [History] Simvastatin [Zocor] 10 mg PO HS 05/25/18 [History] Amiodarone [Cordarone] 200 mg PO QAM 08/15/18 [History] Ascorbate Calcium [Vitamin C] 500 mg PO QAM 08/15/18 [History] Ergocalciferol (VITAMIN D2) [Vitamin D2] 50,000 unit PO WE 08/15/18 [History] Insulin Glargine,Hum.rec.anlog [Lantus Solostar] 20 units SQ QAM 08/15/18 [History] Insulin LISPRO [Admelog Solostar] 2 - 10 units SQ TIDWM MDD sliding scale 08/15/18 [History] Isosorbide DInitrate [Isosorbide Dinitrate] 20 mg PO TID 08/15/18 [History] Metoprolol Succinate 25 mg PO QAM 08/15/18 [History] OxyCODONE Immed Rel [Roxicodone 20 MG] 20 mg PO Q6H PRN 08/15/18 [History] Pantoprazole Sodium 40 mg PO QAM 08/15/18 [History] Triamcinolone Acetonide 1 appl TP BID PRN 08/15/18 [History] Warfarin [Coumadin] 1.5 mg PO MO 08/15/18 [History] Warfarin [Coumadin] 2 mg PO SUTUWETHFRSA 08/15/18 [History] Allergy/AdvReac Type Severity Reaction Status Date / Time latex AdvReac Rash Verified 05/25/18 20:54 ROS unobtainable: due to mental status Palliative Care-Exam - Constitutional Vitals: Temp Pulse Resp BP Pulse Ox 97.7 F 115 18 88/69 95 08/16/18 07:10 08/16/18 09:00 08/16/18 09:00 08/16/18 09:00 08/16/18 09:00 General appearance: Present: no acute distress, obese - Head Head Exam: Present: atraumatic, normal inspection, normocephalic - Eye Eye exam: Present: PERRL. Absent: scleral icterus - Respiratory Respiratory exam: Present: rales, wheezes - Expanded Respiratory Exam Location: decreased breath sounds: Left, Right, Upper, Lower, rales: Left, Right, Lower, wheezes: Left, Right, Upper, Lower - Cardiovascular Cardiovascular exam: Present: irregular rhythm, +S1, +S2 - GI/Abdominal Exam GI/Abdominal exam: Present: distended, firm - Catheter Type: Urethral (Mcgu[place]) - Extremities Exam Extremities exam: Present: pedal edema - Expanded Upper Extremities Exam Upper Arm exam: Present: ecchymosis, swelling. Absent: deformity Forearm wrist exam: Present: ecchymosis, swelling. Absent: deformity Vascular: Present: normal capillary refill, radial pulse - Expanded Lower Extremities Exam Lower Leg exam: Present: erythema, swelling - Neurological Exam Neurological exam: Absent: alert - Expanded Neurological Exam Coma Scale Eye Opening: None Coma Scale Motor Response: Withdraws to Pain Coma Scale Verbal Response: None Coma Scale Total: 6 Internal Medicine - CN: Reslt - Labs CBC & Chem 7: 08/16/18 03:24 08/16/18 03:24 Labs: Short CBC 08/16/18 Range/Units 03:24 WBC 7.5 (4.3-11.1) K/mcL Hgb 8.7 L (12.9-16.9) g/dL Hct 27.8 L (37.5-50.1) % Plt Count 175 (140-400) K/mcL Neutrophils # 6.6 (1.6-8.9) K/mcL BMP 08/15/18 08/16/18 18:26 03:24 Sodium 132 L Potassium 6.6 H* 6.5 H* Chloride 97 L Carbon Dioxide 18 L BUN 119 H Creatinine 7.92 H Glucose 164 H Calcium 8.2 L Cardiac Enzymes 08/15/18 Range/Units 18:26 Troponin I 0.10 H* (< 0.04) ng/mL - ABG Interpretation ABG results: ABG ABG pH 7.34 pH Units (7.32-7.45) 08/15/18 18:58 ABG pCO2 29 mmHg (35-45) L 08/15/18 18:58 ABG pO2 74 mmHg (85-104) L 08/15/18 18:58 ABG O2 Saturation 94 % (95-98) L 08/15/18 18:58 PT/INR, D-dimer PT 24.4 Seconds (9.4-12.1) H 08/15/18 08:13 - Impressions Impressions Head CT 08/15/18 09:32 IMPRESSION: No evidence of acute intracranial abnormality. D/ / 08/15/2018 10:01:54 Juan Carlos Cintron MD / [facility] Interpreting Provider: Juan Carlos Cintron MD Echocardiogram 08/16/18 07:00 Impressions: LVEF 35-40%. Severe left ventricular diastolic dysfunction. Mildly dilated right ventricle. Mild right ventricular hypokinesis Moderately dilated left atrium. Mild mitral stenosis. Mild-moderate tricuspid regurgitation. No evidence of pulmonary hypertension. Left Ventricular Wall Motion: Rest Echo Findings The apical inferior, basal inferior, apical anterior, mid anterior, basal anterior, apical septal, mid inferior septal, basal inferior septal, apical lateral, mid anterior lateral, basal anterior lateral, mid anterior septal and basal anterior septal condon were hypokinetic. The apex wall was akinetic. The mid inferior, mid inferior lateral and basal inferior lateral condon were not visualized. Findings: Study Quality * Technically sub-optimal due to poor echocardiographic windows. ECG Findings * Sinus rhythm with BBB. Left Ventricle * LVEF 35-40%. * Mildly dilated left ventricle. * Severe left ventricular diastolic dysfunction. * Definity echo contrast was used. * Atypical septal motion consistent with bundle branch block. * There is no LV thrombus. * Moderate global and segmental left ventricular systolic dysfunction. Right Ventricle * Mildly dilated right ventricle. Mild right ventricular hypokinesis * . Left Atrium * Moderately dilated left atrium. Right Atrium * Moderately dilated right atrium. Aortic Valve * Aortic valve not well visualized. * Mild aortic regurgitation. * Moderately sclerotic aortic valve leaflets. * No aortic stenosis. Mitral Valve * Moderate mitral annular calcification * Mild mitral stenosis. * Mean transmitral gradient is 3 mmHg at a HR of 120/min * No mitral regurgitation. Tricuspid Valve * Mild-moderate tricuspid regurgitation. * No evidence of pulmonary hypertension. * No tricuspid stenosis. * Normal tricuspid valve structure. Pulmonic Valve * Trace pulmonic regurgitation. Aorta * Normally sized aortic root. Pericardium * The pericardium appears normal. IVC * Normal IVC dimensions and inspiratory collapse. Pulmonary Artery * Pulmonary artery not well visualized. Consult Discharge Plan - Plan Referrals: Sean Maciel MD [Primary Care Provider] - Palliative Quality Palliative Quality: Screen for Code Status: Yes, Screen for Goals of Care: Yes, Screen for Pain: Yes, If Pain Regimen Started, Initiate Bowel Regimen: Yes, Screen for Nausea/Vomitting: Yes Code Status: 08/15/18 09:48 Resuscitation Status: Active [RES] Routine Comment: Resuscitation Status: Full Code 08/15/18 21:59 Resuscitation Status: Active [RES] Routine Comment: Resuscitation Status: DNR-Comfort Care 08/15/18 22:11 CODE [Resuscitation Status: Active] [RES] Routine Comment: Resuscitation Status: [id number] Palliative Scale - Palliative Performance Scale How ambulatory is this patient?: Totally bed bound What is patient's level of activity and evidence of disease?: Unable to do any activity, Extensive disease How much self-care assistance does patient require?: Total care How much oral intake does the patient have?: Mouth care only What is this patient's level of consciousness?: Drowsy or coma with or without confusion Palliative Performance Score: 10 % <Sherry Macdonald - Last Filed: 08/16/18 17:10> Date of Encounter: 08/16/18 - Assessment and Plan (1) Dyspnea Current Visit: Yes Status: Acute Qualifiers: Dyspnea type: acute respiratory distress Qualified Code(s): R06.03 - Acute respiratory distress (2) Altered mental status Current Visit: Yes Status: Acute Qualifiers: Altered mental status type: unspecified Qualified Code(s): R41.82 - Altered mental status, unspecified (3) Acute metabolic encephalopathy Current Visit: Yes Status: Acute Palliative-CN HPI - Data of Consult Requesting Physician: Corrine Long Primary Care Provider: Sean Maciel MD - Consult Narrative History of present illness: Mr. Montanez is a 68 year old male CC: Corrine Long - Time Spent with Patient Time: Total time spent is greater than 50% in coordination of care (as documented) at patient's floor/unit and/or counseling patient: Palliative Care-Exam - Constitutional Vitals: Temp Pulse Resp BP Pulse Ox 97.7 F 115 18 88/69 95 08/16/18 07:10 08/16/18 09:00 08/16/18 09:00 08/16/18 09:00 08/16/18 09:00 Internal Medicine - CN: Reslt - Labs CBC & Chem 7: 08/16/18 03:24 08/16/18 03:24 Labs: Short CBC 08/16/18 Range/Units 03:24 WBC 7.5 (4.3-11.1) K/mcL Hgb 8.7 L (12.9-16.9) g/dL Hct 27.8 L (37.5-50.1) % Plt Count 175 (140-400) K/mcL Neutrophils # 6.6 (1.6-8.9) K/mcL BMP 08/15/18 08/16/18 18:26 03:24 Sodium 132 L Potassium 6.6 H* 6.5 H* Chloride 97 L Carbon Dioxide 18 L BUN 119 H Creatinine 7.92 H Glucose 164 H Calcium 8.2 L Cardiac Enzymes 08/15/18 Range/Units 18:26 Troponin I 0.10 H* (< 0.04) ng/mL - ABG Interpretation ABG results: ABG ABG pH 7.34 pH Units (7.32-7.45) 08/15/18 18:58 ABG pCO2 29 mmHg (35-45) L 08/15/18 18:58 ABG pO2 74 mmHg (85-104) L 08/15/18 18:58 ABG O2 Saturation 94 % (95-98) L 08/15/18 18:58 PT/INR, D-dimer PT 24.4 Seconds (9.4-12.1) H 08/15/18 08:13 - Impressions Impressions Head CT 08/15/18 09:32 IMPRESSION: No evidence of acute intracranial abnormality. D/ / 08/15/2018 10:01:54 Juan Carlos Cintron MD / [facility] Interpreting Provider: Juan Carlos Cintron MD Echocardiogram 08/16/18 07:00 Impressions: LVEF 35-40%. Severe left ventricular diastolic dysfunction. Mildly dilated right ventricle. Mild right ventricular hypokinesis Moderately dilated left atrium. Mild mitral stenosis. Mild-moderate tricuspid regurgitation. No evidence of pulmonary hypertension. Left Ventricular Wall Motion: Rest Echo Findings The apical inferior, basal inferior, apical anterior, mid anterior, basal anterior, apical septal, mid inferior septal, basal inferior septal, apical lateral, mid anterior lateral, basal anterior lateral, mid anterior septal and basal anterior septal condon were hypokinetic. The apex wall was akinetic. The mid inferior, mid inferior lateral and basal inferior lateral condon were not visualized. Findings: Study Quality * Technically sub-optimal due to poor echocardiographic windows. ECG Findings * Sinus rhythm with BBB. Left Ventricle * LVEF 35-40%. * Mildly dilated left ventricle. * Severe left ventricular diastolic dysfunction. * Definity echo contrast was used. * Atypical septal motion consistent with bundle branch block. * There is no LV thrombus. * Moderate global and segmental left ventricular systolic dysfunction. Right Ventricle * Mildly dilated right ventricle. Mild right ventricular hypokinesis * . Left Atrium * Moderately dilated left atrium. Right Atrium * Moderately dilated right atrium. Aortic Valve * Aortic valve not well visualized. * Mild aortic regurgitation. * Moderately sclerotic aortic valve leaflets. * No aortic stenosis. Mitral Valve * Moderate mitral annular calcification * Mild mitral stenosis. * Mean transmitral gradient is 3 mmHg at a HR of 120/min * No mitral regurgitation. Tricuspid Valve * Mild-moderate tricuspid regurgitation. * No evidence of pulmonary hypertension. * No tricuspid stenosis. * Normal tricuspid valve structure. Pulmonic Valve * Trace pulmonic regurgitation. Aorta * Normally sized aortic root. Pericardium * The pericardium appears normal. IVC * Normal IVC dimensions and inspiratory collapse. Pulmonary Artery * Pulmonary artery not well visualized. - Attending Attestation I performed a history and physical examination of the patient and discussed his management with the resident. I reviewed the residents note and agree with the documented findings and plan of care. This is a 68 years old male who presented with complaint of cough and altered mental status. Family reported that patient was increasingly midsagittal related to the past 2-3 days, with significant confusion. Patient's has ESRD on hemodialysis for about 1 month, and his hemodialysis catheter was dislodged in dialysis. Patient respiratory status declined and patient was put on BiPAP and subsequently transferred to ICU. Finally refusing a new dialysis catheter to be placed, palliative care consult for goals of care discussion. Patient was evaluated in ICU, he is sedated, on precedex and fentanyl drip. Met with family including his eldest daughter, Michelle, who with the healthcare POA, as well as his youngest daughter and the 2 daughters' husbands. Discussed current clinical situation with CHF exacerbation, ESRD, and lower extremity cellulitis, trajectory of illness, overall poor prognosis and treatment options. Family states patient would not want a BiPAP on, or any aggressive measures. They do not want the HD catheter to be replaced. Goal is comfort measures only, except antibiotics. Family stated goal is for patient to return home as he always wished to at home. Discussed that patient is not stable for discharge as he needs IV medication. Plan is to wean off precedex, maintain on fentanyl drip and transfer out of ICU under hospitalist team. If patient survives will admit to hospice tomorrow. 1430: Patient was re-evaluated after ICU transfer. He is off sedation and Fentanyl gtt. Family had wanted to give him a chance to wake up. Patient was delirious, fighting, uncomfortable. Discussed with family, they agree for agressive treatment of symptom to assure patient's comfort. Started Fentanyl gtt, Haldol and ativan q1hr. add atropine prn and glycopyrrolate for secretions. Palliative Quality Code Status: 08/15/18 09:48 Resuscitation Status: Active [RES] Routine Comment: Resuscitation Status: Full Code 08/15/18 21:59 Resuscitation Status: Active [RES] Routine Comment: Resuscitation Status: DNR-Comfort Care 08/15/18 22:11 CODE [Resuscitation Status: Active] [RES] Routine Comment: Resuscitation Status: [id number] 08/16/18 11:25 Resuscitation Status: Active [RES] Routine Comment: DNI Resuscitation Status: DNR-Comfort Care
[2018-08-16] MEDS ORDERED: Atropine 1% Opth Drops 100 DROP/5 ML BOTTLE SL PRN ×2 (12:15→14:49)
[2018-08-16] MEDS ORDERED: Glycopyrrolate 0.2 MG/ML VIAL IVP PRN ×2 (13:23→14:49)
--- NOTE | 2018-08-16 13:59 | Podiatry Consult Note ---
Date of Encounter: 08/16/18 Time of Encounter: 13:55 Assessment and Plan (1) Venous stasis dermatitis of both lower extremities Current visit: Yes Status: Chronic Assessment: Venous stasis dermatitis BLE Plan: Patient made DNR CCA, currently palliative care. Covered venous ulcer and xerosis with Adaptic. Secured with Kerlix, and tape. Discussed with family patient status and prognosis, at this time family would like to continue with dressing changes, but if patient is in pain would defer treatment. Will place daily orders We will continue to monitor History of Present Illness HPI: Mr. Montanez is a 68 year old male who was brought to the ER yesterday for worsening lethargy and AMS. Patient was consulted to podiatry for lower extremity cellulitis and toe wound. PMH includes ESRD recently started on di alysis in june,.FIB, COPD, and DM. Patient unfortunately overnight was intubated due to respiratory distress and has recently been made a DNRCC. Endotracheal tube was removed prior to examination. Pallative care are consulted and patient at this time is minimally responsive. Family at bedside was able to provide a small amount of history, otherwise, most information has been gathered from previous charts. Family states patient BLE have been erythematous and discolored for over 2 years. Family states patient has thick, elongated, mycotic nails that have been causing him trouble. States a nurse was getting him up and nail was so long it caught his clothing and ripped part of the nail causing trauma to surrounding tissue. States at the [facility] patient had been wearing compression stockings unless he was too edematous and it caused him pain. Family states they will allow treatment for BLE, unless it causes him pain or discomfort, at which time they will defer treatment. Sadly, patient is unable to participate in much of the examination, did arouse to painful stimuli. Past Med Surg Social Fam HX - Past Medical History Medical history: arthritis, atrial fibrillation, COPD, diabetes, dialysis, GERD, hyperlipidemia, hypertension, other Additional medical history: gout, edema Psychiatric history: no psych history - Past Surgical History Surgical History: herniorrhaphy, knee replacement, orthopedic, other, tonsillectomy, vascular surgery, vasectomy Additional surgical history: pacer, valve replacement, bilateral knee replacements - Social History Smoking Status: Current every day smoker Smokeless Tobacco Status: No Alcohol use: none Drug use: none Medications and Allergies Allopurinol [Zyloprim 100 MG] 100 mg PO BID 05/25/18 [History] Aspirin [Lo-Dose Aspirin EC] 81 mg PO DAILY 05/25/18 [History] Furosemide [Lasix] 40 mg PO BID 05/25/18 [History] Simvastatin [Zocor] 10 mg PO HS 05/25/18 [History] Amiodarone [Cordarone] 200 mg PO QAM 08/15/18 [History] Ascorbate Calcium [Vitamin C] 500 mg PO QAM 08/15/18 [History] Ergocalciferol (VITAMIN D2) [Vitamin D2] 50,000 unit PO WE 08/15/18 [History] Insulin Glargine,Hum.rec.anlog [Lantus Solostar] 20 units SQ QAM 08/15/18 [History] Insulin LISPRO [Admelog Solostar] 2 - 10 units SQ TIDWM MDD sliding scale 08/15/18 [History] Isosorbide DInitrate [Isosorbide Dinitrate] 20 mg PO TID 08/15/18 [History] Metoprolol Succinate 25 mg PO QAM 08/15/18 [History] OxyCODONE Immed Rel [Roxicodone 20 MG] 20 mg PO Q6H PRN 08/15/18 [History] Pantoprazole Sodium 40 mg PO QAM 08/15/18 [History] Triamcinolone Acetonide 1 appl TP BID PRN 08/15/18 [History] Warfarin [Coumadin] 1.5 mg PO MO 08/15/18 [History] Warfarin [Coumadin] 2 mg PO SUTUWETHFRSA 08/15/18 [History] Allergy/AdvReac Type Severity Reaction Status Date / Time latex AdvReac Rash Verified 05/25/18 20:54 ROS unobtainable: due to mental status All Systems Reviewed: The remainder of the systems were reviewed and are negative - Constitutional Constitutional: as per HPI - Cardiovascular Cardiovascular: as per HPI - Respiratory Respiratory: as per HPI - Musculoskeletal Musculoskeletal: as per HPI Physical Exam - Constitutional Vitals: Temp Pulse Resp BP Pulse Ox 97.7 F 115 18 88/69 95 08/16/18 07:10 08/16/18 09:00 08/16/18 09:00 08/16/18 09:00 08/16/18 09:00 General appearance: no acute distress, obese Exam: Constitiutional: Arouses to pain Vascular: 1/4 DP/PT bilaterally, CFT sluggish to all digits, warm to warm from tibia to toes bilaterally, edema 2/4 noted bilaterally Neurologic: normal plantar response Dermatologic: Venous ulceration noted to left 1st metatarsal, discoloration of BLE, thick, hardened skin, weeping noted to BLE Musculoskeletal: Unable to assess. Normal tone BLE. Results - Labs Result Diagrams: 08/16/18 03:24 08/16/18 03:24 Labs: Abnormal lab results RBC 3.16 M/mcL (4.19-5.50) L 08/16/18 03:24 Hgb 8.7 g/dL (12.9-16.9) L 08/16/18 03:24 Hct 27.8 % (37.5-50.1) L 08/16/18 03:24 MCH 27.5 pg (28.0-33.3) L 08/16/18 03:24 MCHC 31.3 g/dL (31.6-35.5) L 08/16/18 03:24 RDW 18.7 % (11.5-14.5) H 08/16/18 03:24 0.5 K/mcL (0.6-4.6) L 08/16/18 03:24 Nucleated RBCs/100 WBC 1.3 /100 WBC (0) H 08/16/18 03:24 PT 24.4 Seconds (9.4-12.1) H 08/15/18 08:13 ABG pCO2 29 mmHg (35-45) L 08/15/18 18:58 ABG pO2 74 mmHg (85-104) L 08/15/18 18:58 ABG HCO3 16 mEq/L (21-27) L 08/15/18 18:58 ABG Total CO2 16 mEq/L (20-26) L 08/15/18 18:58 ABG O2 Saturation 94 % (95-98) L 08/15/18 18:58 ABG Base Excess -9 mEq/L (-2 to 3) L 08/15/18 18:58 VBG pCO2 29 mmHg (41-51) L 08/15/18 18:42 VBG HCO3 15 mEq/L (21-27) L 08/15/18 18:42 Sodium 132 mEq/L (136-145) L 08/16/18 03:24 Potassium 6.5 mEq/L (3.5-5.1) H* 08/16/18 03:24 Chloride 97 mEq/L (98-107) L 08/16/18 03:24 Carbon Dioxide 18 mEq/L (23-29) L 08/16/18 03:24 BUN 119 mg/dL (8-23) H 08/16/18 03:24 7.92 mg/dL (0.70-1.30) H 08/16/18 03:24 Est GFR ( Amer) 8 (> 60) L 08/16/18 03:24 Est GFR (Non-Af Amer) 7 (> 60) L 08/16/18 03:24 Glucose 164 mg/dL (70-105) H 08/16/18 03:24 POC Glucose 168 mg/dL (70-99) H 08/16/18 05:13 7.5 % (-5.6) H 08/15/18 18:26 316 (280-300) H 08/16/18 03:24 Lactic Acid 3.1 mmol/L (0.5-2.2) H 08/15/18 18:26 Calcium 8.2 mg/dL (8.6-10.3) L 08/16/18 03:24 Phosphorus 8.2 mg/dL (2.7-4.5) H 08/16/18 03:24 AST 43 Units/L (13-39) H 08/15/18 08:13 102 mcmol/L (16-53) H 08/15/18 18:26 0.10 ng/mL (< 0.04) H* 08/15/18 18:26 B-Natriuretic Peptide 735 pg/mL (Less than 100) H 08/15/18 08:13 3.4 g/dL (3.5-5.7) L 08/15/18 08:13 4.1 g/dL (2.4-3.5) H 08/15/18 08:13 0.8 (1.1-2.2) L 08/15/18 08:13 Ur Specimen Adequacy See below A 08/15/18 07:53 Garrard (Yellow) A 08/15/18 07:53 Turbid (Clear) A 08/15/18 07:53 100 mg/dL (Neg-Trace) H 08/15/18 07:53 Trace mg/dL (Negative) H 08/15/18 07:53 Large (Negative) H 08/15/18 07:53 Moderate (Negative) H 08/15/18 07:53 Ur Leukocyte Esterase Moderate (Negative) H 08/15/18 07:53 TNTC per hpf (0-3) H 08/15/18 07:53 Hep Bs Antibody < 3.10 mIU/mL (10.00-) L 08/16/18 03:24 Crossmatch See Detail 08/15/18 08:13 H & H 08/16/18 Range/Units 03:24 Hgb 8.7 L (12.9-16.9) g/dL Hct 27.8 L (37.5-50.1) % All other labs normal. Consult Discharge Plan - Plan Referrals: Sean Maciel MD [Primary Care Provider] -
[2018-08-16] MEDS ORDERED: Dextrose Gel 15 GM/37.5 ML TUBE PO PRN ×2 (14:49)
[2018-08-16] MEDS ORDERED: *HR* Morphine 2 MG/ML SYRINGE IVP PRN (14:49)
[2018-08-16] MEDS ORDERED: *HR* FentaNYL (PF) 100 MCG/2 ML VIAL IVP PRN (14:49)
[2018-08-16] MEDS ORDERED: *HR* LORazepam 2 MG/ML VIAL IVP PRN (14:49)
[2018-08-16] MEDS ORDERED: Naloxone 0.4 MG/ML INJ IVP PRN (14:49)
[2018-08-16] MEDS ORDERED: Vancomycin 1 EACH in 0.9 % Sodium Chloride 250 ML IVPB SCH (14:49)
[2018-08-16] MEDS ORDERED: D5% in Water 1,000 ML IVC PRN (14:49)
[2018-08-16] MEDS ORDERED: *HR* Dextrose 50 % in Water (Syg) 50 ML SYRINGE IVP PRN (14:49)
[2018-08-16] MEDS ORDERED: Haloperidol Lactate 5 MG/ML VIAL IVP PRN (16:28)
[2018-08-16] MEDS ORDERED: FentaNYL (PF) 1,000 MCG in 0.9 % Sodium Chloride 80 ML IVC SCH (16:30)
[2018-08-16] MEDS: *HR* LORazepam 2 MG/ML VIAL IVP PRN ×2 (16:41→21:29)
--- NOTE | 2018-08-16 16:43 | Internal Med Progress Note ---
Hospitalist Progress Note - Encounter Date of Encounter: 08/16/18 Time of Encounter: 09:00 - Subjective Interval History: Patient has altered mental status, cannot communicate. Chart reviewed. Overnight events reviewed. Palliative care consult note and recommendation reviewed. Patient is pursuing comfort care only. - Exam Vitals: Temp Pulse Resp BP Pulse Ox 97.7 F 115 18 88/69 95 08/16/18 07:10 08/16/18 09:00 08/16/18 09:00 08/16/18 09:00 08/16/18 09:00 Exam: Pt is nonresponsive, in acute respiratory distress HEENT: NC/AT, PERRL Neck: Supple, no JVD, no LAD Lungs: Bilateral diffused crackles Heart: S1S2, RRR Abd: Distended, BS present Ext: Bilateral lower leg swelling, skin rupture/redness with discharge Neuro: Nonverbal - Assessment and Plan (1) Sepsis Current Visit: Yes Status: Acute Assessment and Plan: Patient has severe sepsis. Patient's family agrees Comfort Care only but still wanted antibiotics. Patient is on Zosyn (2) CHF exacerbation Current Visit: Yes Status: Acute Assessment and Plan: On IV Lasix. Ideally patient needed hemodialysis. However, no access for dialysis. Family wants comfort care only, no further cannula catheter wanted. (3) Hyperkalemia Current Visit: Yes Status: Acute Assessment and Plan: Received hyperkalemia cocktail with insulin, bicarb and kayexalate. Potassium remains high. Family plan for comfort care only, no further dialysis. (4) End stage renal disease Current Visit: Yes Status: Acute Assessment and Plan: As above (5) Bilateral cellulitis of lower leg Current Visit: Yes Status: Acute Assessment and Plan: See #1. On antibitoics. (6) Goals of care, counseling/discussion Current Visit: Yes Status: Acute Assessment and Plan: Palliative care consult appreciated. Family decided to pursue comfort care on ly. CODE STATUS changed to DNR CC (7) Encounter for palliative care Current Visit: Yes Status: Acute - Time Spent with Patient Total time spent is greater than 50% in coordination of care (as documented) at patient's floor/unit and/or counseling patient: 30 minutes 25 - 35 minutes Plan of Care Discussed with: healthcare network consultant Internal Medicine: Result - Labs CBC & Chem 7: 08/16/18 03:24 08/16/18 03:24 Labs: Short CBC 08/16/18 Range/Units 03:24 WBC 7.5 (4.3-11.1) K/mcL Hgb 8.7 L (12.9-16.9) g/dL Hct 27.8 L (37.5-50.1) % Plt Count 175 (140-400) K/mcL Neutrophils # 6.6 (1.6-8.9) K/mcL BMP 08/15/18 08/16/18 18:26 03:24 Sodium 132 L Potassium 6.6 H* 6.5 H* Chloride 97 L Carbon Dioxide 18 L BUN 119 H Creatinine 7.92 H Glucose 164 H Calcium 8.2 L Cardiac Enzymes 08/15/18 Range/Units 18:26 Troponin I 0.10 H* (< 0.04) ng/mL - ABG Interpretation ABG results: ABG ABG pH 7.34 pH Units (7.32-7.45) 08/15/18 18:58 ABG pCO2 29 mmHg (35-45) L 08/15/18 18:58 ABG pO2 74 mmHg (85-104) L 08/15/18 18:58 ABG O2 Saturation 94 % (95-98) L 08/15/18 18:58 PT/INR, D-dimer PT 24.4 Seconds (9.4-12.1) H 08/15/18 08:13 - Impressions Impressions Head CT 08/15/18 09:32 IMPRESSION: No evidence of acute intracranial abnormality. D/ / 08/15/2018 10:01:54 Juan Carlos Cintron MD / [facility] Interpreting Provider: Juan Carlos Cintron MD Echocardiogram 08/16/18 07:00 Impressions: LVEF 35-40%. Severe left ventricular diastolic dysfunction. Mildly dilated right ventricle. Mild right ventricular hypokinesis Moderately dilated left atrium. Mild mitral stenosis. Mild-moderate tricuspid regurgitation. No evidence of pulmonary hypertension. Left Ventricular Wall Motion: Rest Echo Findings The apical inferior, basal inferior, apical anterior, mid anterior, basal anterior, apical septal, mid inferior septal, basal inferior septal, apical lateral, mid anterior lateral, basal anterior lateral, mid anterior septal and basal anterior septal condon were hypokinetic. The apex wall was akinetic. The mid inferior, mid inferior lateral and basal inferior lateral condon were not visualized. Findings: Study Quality * Technically sub-optimal due to poor echocardiographic windows. ECG Findings * Sinus rhythm with BBB. Left Ventricle * LVEF 35-40%. * Mildly dilated left ventricle. * Severe left ventricular diastolic dysfunction. * Definity echo contrast was used. * Atypical septal motion consistent with bundle branch block. * There is no LV thrombus. * Moderate global and segmental left ventricular systolic dysfunction. Right Ventricle * Mildly dilated right ventricle. Mild right ventricular hypokinesis * . Left Atrium * Moderately dilated left atrium. Right Atrium * Moderately dilated right atrium. Aortic Valve * Aortic valve not well visualized. * Mild aortic regurgitation. * Moderately sclerotic aortic valve leaflets. * No aortic stenosis. Mitral Valve * Moderate mitral annular calcification * Mild mitral stenosis. * Mean transmitral gradient is 3 mmHg at a HR of 120/min * No mitral regurgitation. Tricuspid Valve * Mild-moderate tricuspid regurgitation. * No evidence of pulmonary hypertension. * No tricuspid stenosis. * Normal tricuspid valve structure. Pulmonic Valve * Trace pulmonic regurgitation. Aorta * Normally sized aortic root. Pericardium * The pericardium appears normal. IVC * Normal IVC dimensions and inspiratory collapse. Pulmonary Artery * Pulmonary artery not well visualized. Consult Discharge Plan - Plan Referrals: Sean Maciel MD [Primary Care Provider] - (1) Sepsis Qualifiers: Sepsis type: sepsis due to unspecified organism Qualified Code(s): A41.9 - Sepsis, unspecified organism (2) CHF exacerbation Qualifiers: Heart failure type: unspecified Qualified Code(s): I50.9 - Heart failure, unspecified
[2018-08-16] MEDS ORDERED: Furosemide 40 MG/4 ML VIAL IVP SCH (17:00)
[2018-08-16 19:19] VITALS: BP 85/54
[2018-08-16] MEDS ORDERED: Piperacillin/Tazobactam 3.375 GM in 0.9 % Sodium Chloride Mini Bag 100 ML IVPB SCH (20:00)
--- NOTE | 2018-08-17 03:25 | Death Note ---
Discharge Sum: Summary - Date and Time Date of admission: 08/15/18 11:03 Date of : 08/17/18 Time of : 02:20 - Summary Details: Mr. Montanez is a 68 year old male with past medical history of ESRD recently started on dialysis in June, atrial fibrillation, COPD, and diabetes. He presented on 08/15/18 with the chief complaint of coughing for a few days. Reportedly had some confusion and hallucination since last night. Patient is a group home resident and per group home staff he has been getting increasingly lethargic in the last couple of days. Family provided history at the bedside on the date of admission and as per the admitting physician's H&P he was lethargic and unable to answer questions. They note he has been having some coughing and been getting progressively more lethargic. There were reports that he was having worsening abdominal swelling and weeping of the lower extremities. He had bilateral warmth and redness in his bilateral lower extremities per the hospitalist H&P. The family reported increased confusion last night as well as seeing objects that weren't there previously. care home also reports a temperature of 102 and that's why they sent him to the ER. There's also a report that he had a tunneled catheter in the right groin that got dislodged this am when they were trying to move him and that he had a lot of bleeding at the site. On the date of admission, his hemoglobin was 8.2 and he is being transfused 2 units of blood. Vascular surgery was been consulted for tunneled catheter replacement. Head CT was negative for acute intracranial abnormality and XR ch est showed cardiomegaly, pulmonary vascular prominence. No interstitial or alveolar edema was seen. He was started on vancomycin and zosyn. He was started on IV lasix BID for the CHF exacerbation and an ECHO was obtained, which showed LVEF 35-40% and severe left ventricular diastolic dysfunction. Overnight the pt's nurse requested bedside evaluation of the pt due to concern for respiratory status. He was transferrd to ICU for closer management, at that time he was likely to need a temp HD line. INR was 2.2 at that time and he was on anticoagulation for mechanical heart valve. There was concern for reversing the INR due to concern for stroke if there was a mechanical valve. Dr Hernandes was notified of the patient and with the hospitalist, family decided to change his code status to DNR DNI CCA at that time. Palliative care was consulted on 08/16/18 and a goals of care discussion was had. DNR-CC code status updated and state forms signed by the patient's family. He was planned to be transferred to hospice today, however, he passed overnight. Alerted at 0220 AM that the patient had passed peacefully in his bed. No code blue called overhead. No family present at the bedside. The pt had no respirations, no pulse, no HR and pupils fixed/dilated. Dr. Lancaster notified of the patient's passing. - Additional Data Confirmation of as documented by pronouncing clinician: no pulse, no respirations, no heart sounds, pupils fixed and dilated Family: contacted Attending/PCP notified?: No Attending physician: Corrine Long Was code activated?: No Autopsy requested?: No medical examiner notified?: No Organ bank notified?: No Advance directives: No Hospice patient?: No Discharge Sum: Diag - PCOD Probable Cause of : Cardiac arrest Discharge Sum: Prov - Provider Primary care physician: Sean Maciel MD Admitting clinician: Corrine Long Attending physician on admission: Corrine Long Consults: 08/15/18 07:30 Consult to Vascular Surgery [CONS] Stat Consulting Provider: Vascular Surgery Julia Reason for Consult: right fem permacath removed Time Notified: 07:31 Call Completed: Yes 08/15/18 09:56 Consult to Nephrology [CONS] Routine Consulting Provider: Kidney Julia/PUJA/MINAL/WM Reason for Consult: [id number] Call Completed: No 08/15/18 12:15 Consult to Podiatry [CONS] Routine Consulting Provider: Podiatry [facility] Reason for Consult: toe wound and lower exremity cellulitis Call Completed: No 08/15/18 15:17 Consult to Personnel Specialist [CONS] Routine Reason for SW Consult: d/c planning 08/15/18 22:00 Consult to Palliative Care [CONS] Routine Comment: Consulting Provider: Palliative Care Julia Reason for Consult: critically ill patient; needs dialysis but unable to obtain access Time Notified: 22:01 Call Completed: No Pronouncing clinician: Paul Tamayo
[2018-08-17] MEDS: Levalbuterol Neb 0.63 MG/3 ML IH SCH (03:51)
--- NOTE | 2018-08-17 06:44 | Vascular/Endovasc Consult Note ---
Date of Encounter: 08/16/18 Time of Encounter: 08:15 Assessment and Plan (1) Anemia due to acute blood loss Status: Acute The patient has acute blood loss anemia due to his recent right femoral vein hemorrhage. He has no active bleeding at this time. (2) End stage renal disease Status: Chronic The patient pulled his right femoral dialysis catheter. His no hematoma or active bleeding at this time scattered ecchymosis is present. His femoral pulses palpable. At this time there is no plan to further dialyze the patient (3) Venous stasis ulcer of ankle limited to breakdown of skin Status: Acute The patient has evidence of venous stasis ulceration with surrounding cellulitis. He is currently on intravenous antibiotics. Local wound care is recommended. [facility] vascular lab studies. Qualifiers: Varicose vein presence: with varicose veins Laterality: unspecified laterality Qualified Code(s): I83.003 - Varicose veins of unspecified lower extremity with ulcer of ankle; L97.301 - Non-pressure chronic ulcer of unspecified ankle limited to breakdown of skin (4) Acute metabolic encephalopathy Status: Acute (5) COPD (chronic obstructive pulmonary disease) Status: Chronic Qualifiers: COPD type: emphysema Emphysema type: panlobular Qualified Code(s): J43.1 - Panlobular emphysema (6) Sepsis Status: Acute Qualifiers: Sepsis type: sepsis due to unspecified organism Qualified Code(s): A41.9 - Sepsis, unspecified organism (7) Diabetes Status: Chronic Qualifiers: Diabetes mellitus type: type 2 Diabetes mellitus prison insulin use: unspecified terminal clerk insulin use status Diabetes mellitus complication status: with unspecified complications Qualified Code(s): E11.8 - Type 2 diabetes mellitus with unspecified complications - History of Present Illness Consult date: 08/16/18 Requesting physician: Frederick Mark Consult reason: Patient pulled dialysis catheter from right groin Chief complaint: Right lower extremity bleeding History of present illness: Mr. Montanez is a 68 year old male with a history of COPD, atrial fibrillation, end-stage renal disease on hemodialysis, hyperlipidemia and hypertension. The patient became confused yesterday and pulled his urinalysis line from his right groin. The patient subsequent hemorrhage and was transported the original [facility]. The patient was evaluated and bleeding was controlled. Vascular surgery was counselled for further evaluation. He was admitted to the floor but later required transfer to the intensive care unit denied hyperkalemia and was respiratory distress. He has had no bleeding since arrival in the intensive care unit. Due to his declining condition, his code status was changed to DNR CC DNI. At the time of evaluation the patient is nonresponsive. Past Med Surg Social Fam HX - Past Medical History Medical history: arthritis, atrial fibrillation, COPD, diabetes, dialysis, GERD, hyperlipidemia, hypertension, other Additional medical history: gout, edema Psychiatric history: no psych history - Past Surgical History Surgical History: herniorrhaphy, knee replacement, orthopedic, other, tonsillectomy, vascular surgery, vasectomy Additional surgical history: pacer, valve replacement, bilateral knee replacements - Social History Smoking Status: Current every day smoker Smokeless Tobacco Status: No Alcohol use: none Drug use: none - Additional Family History Additional family history: Patient unable to provide family history due to altered mental status. Medications and Allergies Allopurinol [Zyloprim 100 MG] 100 mg PO BID 05/25/18 [History] Aspirin [Lo-Dose Aspirin EC] 81 mg PO DAILY 05/25/18 [History] Furosemide [Lasix] 40 mg PO BID 05/25/18 [History] Simvastatin [Zocor] 10 mg PO HS 05/25/18 [History] Amiodarone [Cordarone] 200 mg PO QAM 08/15/18 [History] Ascorbate Calcium [Vitamin C] 500 mg PO QAM 08/15/18 [History] Ergocalciferol (VITAMIN D2) [Vitamin D2] 50,000 unit PO WE 08/15/18 [History] Insulin Glargine,Hum.rec.anlog [Lantus Solostar] 20 units SQ QAM 08/15/18 [History] Insulin LISPRO [Admelog Solostar] 2 - 10 units SQ TIDWM MDD sliding scale 08/15/18 [History] Isosorbide DInitrate [Isosorbide Dinitrate] 20 mg PO TID 08/15/18 [History] Metoprolol Succinate 25 mg PO QAM 08/15/18 [History] OxyCODONE Immed Rel [Roxicodone 20 MG] 20 mg PO Q6H PRN 08/15/18 [History] Pantoprazole Sodium 40 mg PO QAM 08/15/18 [History] Triamcinolone Acetonide 1 appl TP BID PRN 08/15/18 [History] Warfarin [Coumadin] 1.5 mg PO MO 08/15/18 [History] Warfarin [Coumadin] 2 mg PO SUTUWETHFRSA 08/15/18 [History] Allergy/AdvReac Type Severity Reaction Status Date / Time latex AdvReac Rash Verified 05/25/18 20:54 ROS unobtainable: due to mental status All Systems Review: The remainder of the systems were reviewed and are negative Exam General: Present: Other (Unresponsive) HEENT: Present: Pupils equal Neck: Absent: JVD, Lymphadenopathy Cardiac: Present: Reg Rate and Rhythm, Normal S1 and S2 Lungs: Present: Other (Breath sounds bilaterally, scattered rhonchi) Neuro: Present: Other (Normal muscle tone, unresponsive) Abdomen: Present: Soft, Non-tender. Absent: Masses Vascular: Present: Normal capillary refill, Pulse, absent (Pedal pulses absent, pedal signals are biphasic), Edema (One possibility of bilateral lower extremities) Skin: Present: Wound/ulcer(s) (Superficial ulcerations of dermatitis present in the bilateral ankles) Consult Discharge Plan - Plan Referrals: Sean Maciel MD [Primary Care Provider] -
[2018-08-17] MEDS ORDERED: Cholecalciferol (D-3) 1,000 UNIT TABLET PO SCH (09:00)
--- NOTE | 2018-08-17 15:54 | Electrocardiograph Report ---
[address] [place], [place] [address] Test Date: 2018-08-15 Pat Name: Lincoln Montanez Department: [id number] Room: 2A45 Gender: M Manager Utilization: : 1950 Requested By: Frederick Mark Order Number: [id number] Reading MD: Senthil Rose Measurements Intervals [place] Rate: 132 P: 0 MI: QRS: -85 QRSD: 185 T: 61 QT: 376 QTc: 558 Interpretive Statements Sinus tachycardia RBBB and LAFB ST depr, consider ischemia, anterolateral lds Electronically Signed On 08-17-2018 15:52:55 EDT by Senthil Rose
--- NOTE | 2018-08-17 16:26 | Electrocardiograph Report ---
[place] [address] Test Date: 2018-08-15 Pat Name: Lincoln Montanez Department: 110 Room: 2A45 Gender: M Lead Mechanic: Latanya : 1950 Requested By: Corrine Long Order Number: [id number] Reading MD: Senthil Rose Measurements Intervals [place] Rate: 117 P: 228 [place]: 212 QRS: 122 QRSD: 206 T: 28 QT: 411 QTc: 481 Interpretive Statements SINUS TACHYCARDIA WITH FIRST DEGREE AV BLOCK INDETERMINATE AXIS RIGHT BUNDLE BRANCH BLOCK [120+ ms QRS DURATION, UPRIGHT V1, 40+ ms S IN I/aVL/V4/V5/V6] POSSIBLE ANTERIOR MYOCARDIAL INFARCTION [30 ms Q WAVE IN V3/V4, OR R < 0.2 mV IN V4], PROBABLY OLD Electronically Signed On 08-17-2018 16:24:37 EDT by Senthil Rose
== END 2018-08-17 05:30 | disposition expired | DRG 314 ==
LOC: EMEROOARM 07:21 → 3BNU 07:21 → 2NNU 11:03 → ICNU 20:29 → 2ANU 08-16 16:22
PROVIDERS: ADMIT Student in an Organized Health Care Education/Training Program; ATTEND Student in an Organized Health Care Education/Training Program